=== PATIENT | female | born 1945 | race Two or more races ===

== ENCOUNTER 2019-09-01 19:47 | Inpatient (IN) | payer MEDICARE, OTHER ==
[~2019-09-01] VITALS: Ht 165.1 cm; Wt 58.5 kg
--- NOTE | 2019-09-01 19:50 | NUR ---
PT AAOX2. BIB PRIVATE AMB FROM [address] C/O "BECOMING MORE ALTERED" WAS TOLD PT IS USUALLY AAOX4 BUT IN THE PAST 2 WEEKS SLOWLY BECOMING ALTERED. PT HX OF DEMENTIA. DENIES ANY PAIN. RR EVEN AND UNLABORED. NO NEURO DEFICIT. VSS. AWAITING MD FOR EVAL.
[2019-09-01] MEDS ORDERED: IV NS 0.9% 1,000 ML BAG IV ONE (20:30)
[2019-09-01] MEDS ORDERED: ALBUTEROL FS 2.5 MG/3 ML VIAL.NEB NEB ONE (20:30)
[2019-09-01] MEDS ORDERED: ALBUTEROL FS 2.5 MG/3 ML VIAL.NEB ONE (20:32)
--- NOTE | 2019-09-01 20:47 | NUR ---
PT RECIEVING BREATHING TREATMENT
[2019-09-01 20:53] LABS: BASOPHILS % (AUTO) 0.5 % (0.0-2.0); HEMATOCRIT 32 % (33-45); HEMOGLOBIN 10.6 g/dL (11.5-14.8); LYMPHOCYTES # (AUTO) 1.7 /CMM (0.8-4.8); LYMPHOCYTES % (AUTO) 19.8 % (20.0-44.0); MEAN CORPUSCULAR HGB CONC 33 g/dl (31.0-36.0); MEAN CORPUSCULAR VOLUME 91 fL (82-100); MONOCYTES # (AUTO) 0.9 /CMM (0.1-1.30); MONOCYTES % (AUTO) 10.4 % (2.0-12.0); NEUTROPHILS # (AUTO) 5.7 /CMM (1.8-8.9); NEUTROPHILS % (AUTO) 67.3 % (43.0-81.0); PLATELET COUNT (AUTO) 299 /CMM (150-450); RED BLOOD CELL COUNT(AUTO) 3.48 MIL/uL (4.0-5.2); WHITE BLOOD COUNT (AUTO) 8.4 K/uL (4.3-11.0)
[2019-09-01 20:55] LABS: APPEARANCE,URINE CLEAR (CLEAR); BILIRUBIN,URINE NEGATIVE (NEGATIVE); BLOOD, URINE NEGATIVE Ery/uL (NEGATIVE); COLOR,URINE YELLOW (YELLOW); KETONES,URINE NEGATIVE (NEGATIVE); LEUKOCYTE ESTERASE ,URINE SMALL (NEGATIVE); NITRITE, URINE NEGATIVE (NEGATIVE); PROTEIN,URINE NEGATIVE (NEGATIVE); UGLUCOSE NEGATIVE (NEGATIVE); UROBILINOGEN,URINE 0.2 EU/dL (0.2)
[2019-09-01] MEDS ORDERED: predniSONE 50 MG TABLET PO ONE (21:00)
[2019-09-01] MEDS ORDERED: predniSONE 20 MG TABLET ONE (21:00)
[2019-09-01 21:02] LABS: BACTERIA,URINE 1+ /HPF (None Seen); RBC,URINE 0-2 /HPF (0-2); SQUAMOUS EPITHELIAL CELL,UR Few /HPF (None Seen); WBC,URINE 51-80 /HPF (0-3)
[2019-09-01 21:14] LABS: CREATININE 0.8 mg/dL (0.6-1.3); POTASSIUM 3.8 mmol/L (3.5-5.1)
--- NOTE | 2019-09-01 21:15 | NUR ---
DR YUE TIAN FOR PANEL AND NURSING SUP CALLED FOR MS BED
[2019-09-01 21:21] LABS: ALBUMIN 3.2 g/dL (3.4-5.0); BILIRUBIN,DIRECT 0.1 mg/dL (0.0-0.2); BILIRUBIN,TOTAL 0.2 mg/dL (0.2-1.0); TOTAL PROTEIN, SERUM 6.6 g/dL (6.4-8.2)
[2019-09-01] MEDS ORDERED: CEFEPIME 1 GM in IV D5W 50 ML IV ONE (21:30)
[2019-09-01] MEDS ORDERED: CEFEPIME 1 GM VIAL ONE (21:41)
--- NOTE | 2019-09-01 21:52 | NUR ---
RECIEVED BED 311-1 MS
--- NOTE | 2019-09-01 22:05 | NUR ---
REPORT GIVEN TO AMA MEMBRENO FOR ESTEPHANIA
[2019-09-01 22:30] VITALS: BP 129/82
[2019-09-01] MEDS ORDERED: ONDANSETRON HCL/PF 4 MG/2 ML VIAL IVP PRN (22:30)
[2019-09-01] MEDS ORDERED: Z GUARD REMEDY 2 OZ OINT TP PRN (22:30)
[2019-09-01] MEDS ORDERED: HYDROCODONE/APAP 5/325MG 1 EACH TABLET PO PRN (22:30)
[2019-09-01] MEDS ORDERED: ZOLPIDEM TARTRATE 5 MG TABLET PO PRN (22:30)
--- NOTE | 2019-09-01 22:30 | NUR ---
MS RAISIN WASHER NOTES RECEIVED FROM ER THIS 74 YO FEMALE,A/O X 2-3,WITH EPISODE OF CONFUSION,DX; ACUTE PANCREATITIS,DENIES ABDOMINAL PAIN,NO SOB,SALINE LOCK LEFT AC INTACT,WITH BLOOD STAIN NOTED,FLUSHED WITH SALINE,INTACT AND PATENT.NOTED SLIGHT SWELLING ON I AC SITE,REFUSED TO HAVE NEW SALINE LOCK.AMBULATE WITH ASSIST,WITH KNOWN HX OF LEFT KNEE SURGERY 4 WEEKS AGO,BILATERAL MASTECTOMY FEW YEARS AGO.WITH KNOWN ALLERGY TO TRAMADOL AND TRAZODONE.FALL PRECAUTION OBSERVED,BED ALARM TRIGGERED,BED ON LOWEST POSITION AND LOCKED.NPO STATUS ORDERED.CALL LIGHT IN REACH,NEEDS ANTICIPATED.
[2019-09-01] MEDS: IV 1/2NS 1000 ML 1,000 ML IV PRN (22:51)
--- NOTE | 2019-09-01 22:51 | NUR ---
MS RN NOTES STARTED ON IVF 1/2 NS AT 125ML/HR RATE VIA IV PUMP ON LEFT AC.
--- NOTE | 2019-09-01 23:00 | NUR ---
MS RN NOTES STARTED ON ROCEPHIN 1 GM IVPB ORDERED.
[2019-09-01] MEDS ORDERED: CEFTRIAXONE 1 G VIAL ONE (23:06)
[2019-09-01] MEDS: CEFTRIAXONE 1 G in IV D5W 50 ML IV SCH (23:09)
--- NOTE | 2019-09-02 01:02 | NUR ---
MS RN NOTES NOTED IV SITE LEAKING.NEW SALINE LOCK PLACE ON RIGHT FOREARM#22.SAME IVF INFUSING.
--- NOTE | 2019-09-02 06:20 | NUR ---
MS RN NOTES FAIRLY RESTED,KEPT NPO ORDERED.STILL WITH EPISODE OF CONFUSION BUT APOLOGITIC WITH HER BEHAVIOR.NO FALL,NO INJURY.CALL LIGHT IN REACH,NEEDS ATTENDED.WILL ENDORSE TO DAY NURSE FOR [place].
[2019-09-02 06:45] LABS: BASOPHILS % (AUTO) 0.1 % (0.0-2.0); HEMATOCRIT 33 % (33-45); HEMOGLOBIN 10.8 g/dL (11.5-14.8); LYMPHOCYTES # (AUTO) 0.5 /CMM (0.8-4.8); LYMPHOCYTES % (AUTO) 6.5 % (20.0-44.0); MEAN CORPUSCULAR HGB CONC 33 g/dl (31.0-36.0); MEAN CORPUSCULAR VOLUME 92 fL (82-100); MONOCYTES # (AUTO) 0.1 /CMM (0.1-1.30); MONOCYTES % (AUTO) 1.7 % (2.0-12.0); NEUTROPHILS # (AUTO) 7.2 /CMM (1.8-8.9); NEUTROPHILS % (AUTO) 91.7 % (43.0-81.0); PLATELET COUNT (AUTO) 314 /CMM (150-450); RED BLOOD CELL COUNT(AUTO) 3.55 MIL/uL (4.0-5.2); WHITE BLOOD COUNT (AUTO) 7.9 K/uL (4.3-11.0)
[2019-09-02 07:08] LABS: BILIRUBIN,TOTAL 0.2 mg/dL (0.2-1.0); CALCIUM, SERUM 8.7 mg/dL (8.5-10.1); CREATININE 0.7 mg/dL (0.6-1.3); MAGNESIUM 1.8 mg/dL (1.8-2.4); PHOSPHORUS 3.6 mg/dL (2.5-4.9); POTASSIUM 4.4 mmol/L (3.5-5.1); TOTAL PROTEIN, SERUM 6.6 g/dL (6.4-8.2)
[2019-09-02 08:00] VITALS: BP 108/80
[2019-09-02] MEDS ORDERED: MELA5TAB PO (09:57)
[2019-09-02] MEDS ORDERED: ASPI-605 PO (09:57)
[2019-09-02] MEDS ORDERED: LIDO120C7 TP (09:57)
[2019-09-02] MEDS ORDERED: ASCO500T10 PO (09:57)
[2019-09-02] MEDS ORDERED: CYCL30DR OP (09:57)
[2019-09-02] MEDS ORDERED: FLUT15.845 NS (09:57)
[2019-09-02] MEDS ORDERED: AMLO5TAB4 PO (09:57)
[2019-09-02] MEDS ORDERED: CHOL200013 PO (09:57)
[2019-09-02] MEDS ORDERED: MAGN400O6 PO (09:57)
[2019-09-02] MEDS ORDERED: ALBU8.5H8 IH (09:57)
[2019-09-02] MEDS ORDERED: ACET-73 PO (09:57)
[2019-09-02] MEDS ORDERED: MULT-439 PO (09:57)
[2019-09-02] MEDS ORDERED: GABA-534 PO (09:57)
[2019-09-02] MEDS ORDERED: BISA10SU11 RC (09:57)
[2019-09-02] MEDS ORDERED: DICL100G16 TP (09:57)
[2019-09-02] MEDS ORDERED: ESCI10TA PO (09:57)
[2019-09-02] MEDS ORDERED: NA P133E RC (09:57)
[2019-09-02] MEDS ORDERED: ATOR20TA PO (09:57)
[2019-09-02] MEDS ORDERED: OMEG1CAP PO (09:57)
[2019-09-02] MEDS ORDERED: CALC1POW43 PO (09:57)
[2019-09-02] MEDS ORDERED: DONE10TA11 PO (09:57)
[2019-09-02] MEDS ORDERED: LOSA100T31 PO (09:57)
[2019-09-02] MEDS ORDERED: [UNRECOGNIZED DRUG - OTHER] PO (09:57)
[2019-09-02] MEDS ORDERED: POLY17PO4 PO (09:57)
[2019-09-02] MEDS ORDERED: POTA-10 PO (09:57)
[2019-09-02] MEDS ORDERED: QUET25TA PO (09:57)
[2019-09-02] MEDS ORDERED: MEMA10TA PO (09:57)
[2019-09-02] MEDS ORDERED: FAMO20TA8 PO (09:57)
[2019-09-02] MEDS ORDERED: CYAN10006 PO (09:57)
[2019-09-02] MEDS ORDERED: QUET50TA PO (09:57)
[2019-09-02] MEDS ORDERED: DOCU-141 PO (09:57)
[2019-09-02] MEDS ORDERED: DULO60CA64 PO (09:57)
[2019-09-02] MEDS ORDERED: LEVO112T2 PO (09:57)
[2019-09-02] MEDS ORDERED: BISACODYL SUPP (10 MG) 10 MG/SUPP.RECT SUPP.RECT RC PRN (10:30)
[2019-09-02] MEDS ORDERED: NA PHOS,M-B/NA PHOS,DI-BA 1 EA ENEMA RC PRN (10:30)
[2019-09-02] MEDS ORDERED: MAGNESIUM HYDROXIDE 30 ML UDC PO PRN (10:30)
[2019-09-02] MEDS: IV 1/2NS 1000 ML 1,000 ML IV PRN (10:32)
[2019-09-02] MEDS: ATORVASTATIN 10 MG TABLET PO SCH (10:46)
[2019-09-02] MEDS ORDERED: ACETAMINOPHEN 325 MG TABLET PO PRN (11:30)
[2019-09-02] MEDS: LOSARTAN POTASSIUM 50 MG TABLET PO SCH (11:30)
[2019-09-02] MEDS ORDERED: QUETIAPINE FUMARATE 25 MG TABLET PO SCH (11:30)
[2019-09-02] MEDS: CHOLECALCIFEROL 1,000 UNIT TABLET (VIT D3) PO SCH (11:36)
[2019-09-02] MEDS: FAMOTIDINE (20 MG) 20 MG TABLET PO SCH ×2 (11:37→16:20)
[2019-09-02] MEDS: AMLODIPINE BESYLATE 5 MG TABLET PO SCH (11:37)
[2019-09-02] MEDS: DULOXETINE HCL 30 MG CAPSULE.DR PO SCH (11:54)
[2019-09-02] MEDS ORDERED: POLYVINYL ALCOHOL 15 ML BOTTLE EACHEYE PRN (12:30)
--- NOTE | 2019-09-02 13:00 | NUR ---
_Patient tolerated full liquid diet well. No N/V / abd pain reported. Will advance to soft diet per Dr. Ramirez
[2019-09-02] MEDS ORDERED: ALBUTEROL FS 2.5 MG/0.5 ML VIAL.NEB NEB PRN (13:30)
[2019-09-02] MEDS ORDERED: LIDOCAINE SOLN 4% 50 ML BOTTLE TP PRN (16:00)
[2019-09-02] MEDS ORDERED: CYAN-51 PO (16:04)
[2019-09-02 16:15] VITALS: BP 123/85
[2019-09-02] MEDS: CYANOCOBALAMIN 500 MCG TABLET PO SCH (16:20)
[2019-09-02] MEDS: MEMANTINE HCL 5 MG TABLET PO SCH (16:20)
[2019-09-02] MEDS: DOCUSATE SODIUM 100 MG CAPSULE PO SCH (16:21)
--- NOTE | 2019-09-02 18:20 | NUR ---
PAtient resting in bed, calm spenser cooperative at this time. Breathing unlabored and even on room air , with no distress noted. All needs attended . Patient tolerated soft diet well . Denies abdominal pain. All due meds administrated. Patient ambulatory and able to use bathroom. IV line intact and patent. Patient refused IV fluids. SAfety precautions in place , call light within reach. Will endorse to next shift .
--- NOTE | 2019-09-02 19:20 | NUR ---
MS/RN NOTES RECEIVED PT. SITTING UP IN BED. PT. IS AWAKE, ALERT AND ORIENTED X2-3. BREATHING EVEN AND UNLABORED ON ROOM AIR. NO SOB, RESPIRATORY DISTRESS OR COMPLAINTS OF PAIN NOTED AT THIS TIME PT. WITH RIGHT FOREARM 22 GAUGE SALINE LOCK PRESENT, PATENT AND INTACT. PT. IS REFUSING IV FLUIDS AT THIS TIME. BED LOCKED AND IN LOWEST POSITION, SIDE RAILS UP X2, CALL LIGHT WITHIN REACH, WILL CONTINUE TO MONITOR.
[2019-09-02 20:31] VITALS: BP 140/83
[2019-09-02] MEDS ORDERED: Medication Not On Formulary EA (Quetiapine Fumarate (Seroquel) 50 MG) PO SCH ×2 (22:00)
[2019-09-02] MEDS ORDERED: Medication Not On Formulary EA (Melatonin 5 MG) PO SCH (22:00)
[2019-09-02] MEDS: DONEPEZIL 5 MG TABLET PO SCH (22:25)
[2019-09-02] MEDS: GABAPENTIN 300 MG CAPSULE PO SCH (22:25)
[2019-09-02] MEDS: QUETIAPINE FUMARATE 25 MG TABLET PO SCH (22:25)
[2019-09-02] MEDS: CEFTRIAXONE 1 G in IV D5W 50 ML IV SCH (22:25)
--- NOTE | 2019-09-03 06:17 | NUR ---
MS/RN NOTES PT. IS LYING IN BED RESTING. BREATHING EVEN AND UNLABORED ON ROOM AIR. NO SOB, RESPIRATORY DISTRESS OR COMPLAINTS OF PAIN NOTED AT THIS TIME AND THROUGHOUT SHIFT. PT. WITH RIGHT FOREARM 22 GAUGE PERIPHERAL IV PRESENT, PATENT AND INTACT ADMINISTERING TO PT. 1/2 NS @ 125 ML/HR. ALL PT. NEEDS MET. BED LOCKED AND IN LOWEST POSITION, SIDE RAILS UP X2, CALL LIGHT WITHIN REACH, WILL ENDORSE TO DAYSHIFT NURSE FOR CONTINUITY OF CARE.
[2019-09-03 06:49] LABS: BASOPHILS # (AUTO) 0.1 /CMM (0.0-0.2); BASOPHILS % (AUTO) 0.8 % (0.0-2.0); EOSINOPHILS % (AUTO) 1.8 % (0.0-6.0); HEMATOCRIT 32 % (33-45); HEMOGLOBIN 10.7 g/dL (11.5-14.8); LYMPHOCYTES # (AUTO) 2.4 /CMM (0.8-4.8); LYMPHOCYTES % (AUTO) 36.4 % (20.0-44.0); MEAN CORPUSCULAR HGB CONC 34 g/dl (31.0-36.0); MEAN CORPUSCULAR VOLUME 91 fL (82-100); MONOCYTES # (AUTO) 0.7 /CMM (0.1-1.30); MONOCYTES % (AUTO) 10.9 % (2.0-12.0); NEUTROPHILS # (AUTO) 3.3 /CMM (1.8-8.9); NEUTROPHILS % (AUTO) 50.1 % (43.0-81.0); PLATELET COUNT (AUTO) 309 /CMM (150-450); RED BLOOD CELL COUNT(AUTO) 3.51 MIL/uL (4.0-5.2); WHITE BLOOD COUNT (AUTO) 6.7 K/uL (4.3-11.0)
[2019-09-03 07:22] LABS: CALCIUM, SERUM 8.7 mg/dL (8.5-10.1); CREATININE 0.7 mg/dL (0.6-1.3); POTASSIUM 4.1 mmol/L (3.5-5.1)
--- NOTE | 2019-09-03 07:50 | NUR ---
MS/RN Opening notes Patient received resting in bed, A/O x2-3, showing no signs of acute distress at this time. No SOB noted, saturating >95% on RA. IV line is clean and intact. Patient has no new concerns at this time. Bed is in lowest position, side rails x3 in upright position, call light is within reach. Safety, fall and aspiration precautions enforced. Will continue with plan of care.
[2019-09-03 08:00] VITALS: BP 112/88
[2019-09-03] MEDS ORDERED: Medication Not On Formulary EA (Omega-3 Fatty Acids/Fish Oil (Fish Oil 1,000 Mg Capsule) PO SCH (09:00)
[2019-09-03] MEDS: POLYETHYLENE GLYCOL 3350 17 GM POWD.PACK PO SCH (09:00)
[2019-09-03] MEDS ORDERED: ESCITALOPRAM OXALATE (10 MG) 10 MG TABLET PO SCH (09:00)
[2019-09-03] MEDS: DOCUSATE SODIUM 100 MG CAPSULE PO SCH ×2 (09:00→16:20)
[2019-09-03] MEDS ORDERED: CYANOCOBALAMIN 1,000 MCG/ML VIAL IJ SCH (09:00)
[2019-09-03] MEDS ORDERED: DICLOFENAC TOPICAL 100 GM GEL..GM. TP SCH (09:00)
[2019-09-03] MEDS: FAMOTIDINE (20 MG) 20 MG TABLET PO SCH ×2 (09:11→16:20)
[2019-09-03] MEDS: MEMANTINE HCL 5 MG TABLET PO SCH ×2 (09:11→16:20)
[2019-09-03] MEDS: CYANOCOBALAMIN 500 MCG TABLET PO SCH (09:11)
[2019-09-03] MEDS: DULOXETINE HCL 30 MG CAPSULE.DR PO SCH (09:11)
[2019-09-03] MEDS: AMLODIPINE BESYLATE 5 MG TABLET PO SCH (09:11)
[2019-09-03] MEDS: ASPIRIN EC 81 MG TABLET.DR PO SCH (09:12)
[2019-09-03] MEDS: QUETIAPINE FUMARATE 25 MG TABLET PO SCH ×2 (09:12→21:21)
[2019-09-03] MEDS: ASCORBIC ACID 500 MG TABLET PO SCH (09:12)
[2019-09-03] MEDS: LOSARTAN POTASSIUM 50 MG TABLET PO SCH (09:12)
[2019-09-03] MEDS: CALCIUM CARB 250MG /VITAMIN D 1 UDTAB PO SCH (09:12)
[2019-09-03] MEDS: CHOLECALCIFEROL 1,000 UNIT TABLET (VIT D3) PO SCH (09:13)
[2019-09-03] MEDS: LEVOTHYROXINE SODIUM 112 MCG TABLET PO SCH (09:13)
[2019-09-03] MEDS: ATORVASTATIN 10 MG TABLET PO SCH (09:13)
[2019-09-03] MEDS: MULTIVIT W/MINERALS 1 TAB TABLET PO SCH (09:13)
[2019-09-03] MEDS: FLUTICASONE PROPIONATE 16 GM BOTTLE NS SCH (09:40)
[2019-09-03 16:00] VITALS: BP 105/70
[2019-09-03 18:15] LABS: APPEARANCE,URINE CLEAR (CLEAR); BILIRUBIN,URINE NEGATIVE (NEGATIVE); BLOOD, URINE NEGATIVE Ery/uL (NEGATIVE); COLOR,URINE YELLOW (YELLOW); KETONES,URINE NEGATIVE (NEGATIVE); LEUKOCYTE ESTERASE ,URINE NEGATIVE (NEGATIVE); NITRITE, URINE NEGATIVE (NEGATIVE); PROTEIN,URINE NEGATIVE (NEGATIVE); UGLUCOSE NEGATIVE (NEGATIVE); UROBILINOGEN,URINE 0.2 EU/dL (0.2)
[2019-09-03] MEDS ORDERED: TRAMADOL HCL 50 MG TABLET ONE (18:49)
--- NOTE | 2019-09-03 18:54 | NUR ---
MS/RN Closing notes Patient received resting in bed, A/O x2-3, has moments of paranoia, reoriented to reality. Showing no signs of acute distress at this time. No SOB noted, saturating >95% on RA. IV line is clean and intact. Patient is motivated to self-care, BRP, ambulatory. Bed is in lowest position, side rails x3 in upright position, call light is within reach. Safety, fall and aspiration precautions enforced. endorse to windows software engineer.
--- NOTE | 2019-09-03 19:30 | NUR ---
RN NOTES RECEIVED PT. WALKING IN THE HALLWAY, A/OX2, NOT IN DISTRESS, NO PAIN NOTED, WILL CONTINUE TO MONITOR
[2019-09-03 20:00] VITALS: BP 99/70
[2019-09-03] MEDS: DONEPEZIL 5 MG TABLET PO SCH (21:21)
[2019-09-03] MEDS: GABAPENTIN 300 MG CAPSULE PO SCH (21:22)
[2019-09-03] MEDS: CEFTRIAXONE 1 G in IV D5W 50 ML IV SCH (22:56)
[2019-09-03] MEDS: IV 1/2NS 1000 ML 1,000 ML IV PRN (23:51)
--- NOTE | 2019-09-04 06:38 | NUR ---
RN NOTES AWAKE, NOT IN DISTRESS, NO PAIN NOTED, MORNING CARE RENDERED, CALL LIGHT WITHIN REACH, SIDERAILSUPX2, PT. NEEDS ATTENDED
[2019-09-04 07:20] LABS: BASOPHILS # (AUTO) 0.1 /CMM (0.0-0.2); BASOPHILS % (AUTO) 0.8 % (0.0-2.0); EOSINOPHILS % (AUTO) 4.2 % (0.0-6.0); HEMATOCRIT 33 % (33-45); LYMPHOCYTES # (AUTO) 2.4 /CMM (0.8-4.8); MEAN CORPUSCULAR HGB CONC 34 g/dl (31.0-36.0); MEAN CORPUSCULAR VOLUME 91 fL (82-100); MONOCYTES # (AUTO) 0.8 /CMM (0.1-1.30); MONOCYTES % (AUTO) 11.3 % (2.0-12.0); NEUTROPHILS # (AUTO) 3.4 /CMM (1.8-8.9); NEUTROPHILS % (AUTO) 48.7 % (43.0-81.0); PLATELET COUNT (AUTO) 350 /CMM (150-450); RED BLOOD CELL COUNT(AUTO) 3.58 MIL/uL (4.0-5.2)
[2019-09-04 07:22] LABS: CALCIUM, SERUM 8.9 mg/dL (8.5-10.1); CREATININE 0.8 mg/dL (0.6-1.3); POTASSIUM 4.1 mmol/L (3.5-5.1)
--- NOTE | 2019-09-04 07:39 | NUR ---
MS/RN Opening notes Patient received resting in bed, A/O x2-3, showing no signs of acute distress at this time. No SOB noted, saturating >95% on RA. IV line is clean and intact. Patient has no new concerns at this time. Ambulating with walker at this time. Diet advanced to regular as per MD. Bed is in lowest position, side rails x3 in upright position, call light is within reach. Safety precautions enforced. Will continue with plan of care.
[2019-09-04 08:00] VITALS: BP 114/65
[2019-09-04] MEDS: FAMOTIDINE (20 MG) 20 MG TABLET PO SCH ×2 (08:21→16:13)
[2019-09-04] MEDS: CYANOCOBALAMIN 500 MCG TABLET PO SCH (08:21)
[2019-09-04] MEDS: DULOXETINE HCL 30 MG CAPSULE.DR PO SCH (08:21)
[2019-09-04] MEDS: ASCORBIC ACID 500 MG TABLET PO SCH (08:22)
[2019-09-04] MEDS: ATORVASTATIN 10 MG TABLET PO SCH (08:22)
[2019-09-04] MEDS: CALCIUM CARB 250MG /VITAMIN D 1 UDTAB PO SCH (08:22)
[2019-09-04] MEDS: QUETIAPINE FUMARATE 25 MG TABLET PO SCH ×2 (08:22→21:42)
[2019-09-04] MEDS: MEMANTINE HCL 5 MG TABLET PO SCH ×2 (08:22→16:13)
[2019-09-04] MEDS: LOSARTAN POTASSIUM 50 MG TABLET PO SCH (08:22)
[2019-09-04] MEDS: CHOLECALCIFEROL 1,000 UNIT TABLET (VIT D3) PO SCH (08:23)
[2019-09-04] MEDS: LEVOTHYROXINE SODIUM 112 MCG TABLET PO SCH (08:23)
[2019-09-04] MEDS: AMLODIPINE BESYLATE 5 MG TABLET PO SCH (08:23)
[2019-09-04] MEDS: MULTIVIT W/MINERALS 1 TAB TABLET PO SCH (08:23)
[2019-09-04] MEDS: ASPIRIN EC 81 MG TABLET.DR PO SCH (08:24)
[2019-09-04] MEDS: POLYETHYLENE GLYCOL 3350 17 GM POWD.PACK PO SCH (09:00)
[2019-09-04] MEDS: DOCUSATE SODIUM 100 MG CAPSULE PO SCH ×2 (09:00→16:14)
[2019-09-04] MEDS: FLUTICASONE PROPIONATE 16 GM BOTTLE NS SCH (09:29)
[2019-09-04] MEDS: MENTHOL/CETYLPYRD (CEPACOL) 1 LOZ LOZENGE PO PRN ×2 (09:29→14:50)
[2019-09-04 16:00] VITALS: BP_SYST 125; BP_SYST 144; BP_DIAS 80; BP_DIAS 85
--- NOTE | 2019-09-04 18:28 | NUR ---
MS/RN Closing notes Patient received resting in bed, A/O x2-3, showing no signs of acute distress at this time. No SOB noted, saturating >95% on RA. IV line is clean and intact. Patient has no new concerns at this time. Patient slept throughout the day, has BRP, and is ambulating at this time. Bed is in lowest position, side rails x3 in upright position, call light is within reach. Safety precautions enforced. Will endorse to overnight cashier.
--- NOTE | 2019-09-04 19:35 | NUR ---
MS RN OPENING NOTS Patient received walking through the halls, stable gait A/O x3. On RA breathing is even and unlabored, no SOB noted. No signs of acute distress, no complaints of pain or discomfort at the moment. IV located on R FA #22 patent and intact. Safety precautions are in place with bed in lowest position, call light within reach, and break on. Will continue to monitor.
[2019-09-04 20:00] VITALS: BP 128/72
[2019-09-04] MEDS: DONEPEZIL 5 MG TABLET PO SCH (21:42)
[2019-09-04] MEDS: GABAPENTIN 300 MG CAPSULE PO SCH (21:42)
--- NOTE | 2019-09-05 06:36 | NUR ---
MS RN CLOSING NOTES Patient currently resting in bed, A/O x2-3, showing no signs of acute distress at this time. No SOB noted, saturating >95% on RA breathing even and unlabored . IV line located on R FA is clean and intact. Patient has no new concerns at this time. Patient slept throughout the day, has BRP, and is able to ambulate. Bed is in lowest position, side rails x3 in upright position, call light is within reach. Safety precautions enforced. All needs were met throughout the nigh, patient was kept clean and dry. Will endorse to oncoming shift about rayne.
[2019-09-05 06:40] LABS: BASOPHILS # (AUTO) 0.1 /CMM (0.0-0.2); BASOPHILS % (AUTO) 0.7 % (0.0-2.0); EOSINOPHILS % (AUTO) 4.4 % (0.0-6.0); HEMATOCRIT 34 % (33-45); HEMOGLOBIN 11.1 g/dL (11.5-14.8); LYMPHOCYTES # (AUTO) 2.1 /CMM (0.8-4.8); LYMPHOCYTES % (AUTO) 27.3 % (20.0-44.0); MEAN CORPUSCULAR HGB CONC 33 g/dl (31.0-36.0); MEAN CORPUSCULAR VOLUME 92 fL (82-100); MONOCYTES # (AUTO) 0.8 /CMM (0.1-1.30); MONOCYTES % (AUTO) 11.1 % (2.0-12.0); NEUTROPHILS # (AUTO) 4.3 /CMM (1.8-8.9); NEUTROPHILS % (AUTO) 56.5 % (43.0-81.0); PLATELET COUNT (AUTO) 349 /CMM (150-450); RED BLOOD CELL COUNT(AUTO) 3.74 MIL/uL (4.0-5.2); WHITE BLOOD COUNT (AUTO) 7.6 K/uL (4.3-11.0)
[2019-09-05 07:07] LABS: CALCIUM, SERUM 8.9 mg/dL (8.5-10.1); CREATININE 0.8 mg/dL (0.6-1.3); POTASSIUM 3.8 mmol/L (3.5-5.1)
[2019-09-05 08:00] VITALS: BP 137/85
--- NOTE | 2019-09-05 08:00 | NUR ---
MS RN OPENING NOTES Received Patient asleep and resting in bed. A/O x 3 with episodes of confusion. VS stable with no acute distress. Breathing even and unlabored on room air with no respiratory distress. Denies pain. 22g PIV on RFA clean, intact, patent and flushing well with 1/2NS infusing at 125ml/hr. Safety precautions in place. Bed locked and set to lowest position with side rails x 2 up. All needs rendered at this time. Call light within reach. Will continue to monitor.
[2019-09-05] MEDS: FLUTICASONE PROPIONATE 16 GM BOTTLE NS SCH (08:54)
[2019-09-05] MEDS: LEVOTHYROXINE SODIUM 112 MCG TABLET PO SCH (08:54)
[2019-09-05] MEDS: DOCUSATE SODIUM 100 MG CAPSULE PO SCH (08:54)
[2019-09-05] MEDS: ASPIRIN EC 81 MG TABLET.DR PO SCH (08:54)
[2019-09-05] MEDS: POLYETHYLENE GLYCOL 3350 17 GM POWD.PACK PO SCH (08:55)
[2019-09-05] MEDS: LOSARTAN POTASSIUM 50 MG TABLET PO SCH (08:55)
[2019-09-05] MEDS: ATORVASTATIN 10 MG TABLET PO SCH (08:55)
[2019-09-05] MEDS: DULOXETINE HCL 30 MG CAPSULE.DR PO SCH (08:55)
[2019-09-05 08:56] VITALS: BP 137/85
[2019-09-05] MEDS: CYANOCOBALAMIN 500 MCG TABLET PO SCH (08:56)
[2019-09-05] MEDS: CALCIUM CARB 250MG /VITAMIN D 1 UDTAB PO SCH (08:56)
[2019-09-05] MEDS: QUETIAPINE FUMARATE 25 MG TABLET PO SCH (08:56)
[2019-09-05] MEDS: AMLODIPINE BESYLATE 5 MG TABLET PO SCH (08:56)
[2019-09-05] MEDS: MEMANTINE HCL 5 MG TABLET PO SCH (08:56)
[2019-09-05] MEDS: FAMOTIDINE (20 MG) 20 MG TABLET PO SCH (08:56)
[2019-09-05] MEDS: MULTIVIT W/MINERALS 1 TAB TABLET PO SCH (08:56)
[2019-09-05] MEDS: ASCORBIC ACID 500 MG TABLET PO SCH (08:57)
[2019-09-05] MEDS: CHOLECALCIFEROL 1,000 UNIT TABLET (VIT D3) PO SCH (08:57)
--- NOTE | 2019-09-05 14:35 | NUR ---
MS BRICKLAYER SEWER NOTES Patient discharged for [facility] at this time. Patient in stable condition. VS stable with no acute distress. Breathing even and unlabored on room air with no respiratory distress. Denies pain. Skin intact. Removed intact PIV on RFA. Patient tolerated well. Medication reconciliation and discharge orders reviewed and explained to Patient. Patient verbalized understanding. All belongings with Patient. Patient will follow up with PCP at SNF. Patient picked up by ambulance transport. Report given to Latia MEMBRENO.
--- NOTE | 2019-09-05 15:10 | NUR ---
MS RN NOTES Per [facility], transfer for Patient was unauthorized nor confirmed. Patient returned to hospital at 1500. Received confirmation for Patient transfer at 1505. Patient still in [facility] and in stable condition and was transferred to [facility] at this time.
== END 2019-09-05 15:10 | DRG 438 ==
LOC: ER 19:53 → MED 22:02
PROVIDERS: ADMIT Internal Medicine; ATTEND Family Medicine
DX: K85.90 Acute pancreatitis without necrosis or infection, unspecified (principal); G93.41 Metabolic encephalopathy; N39.0 Urinary tract infection, site not specified; F41.9 Anxiety disorder, unspecified; E78.5 Hyperlipidemia, unspecified; F03.90 Unspecified dementia, unspecified severity, without behavioral disturbance, psychotic disturbance, mood disturbance, and anxiety; J44.9 Chronic obstructive pulmonary disease, unspecified; E86.0 Dehydration; I10 Essential (primary) hypertension; I25.10 Atherosclerotic heart disease of native coronary artery without angina pectoris; Z85.3 Personal history of malignant neoplasm of breast; F32.9 Major depressive disorder, single episode, unspecified; K21.9 Gastro-esophageal reflux disease without esophagitis; Z88.8 Allergy status to other drugs, medicaments and biological substances
CPT/HCPCS: 36415; 71045-TC; 80048-TC; 80053-TC; 80061-TC; 80076-TC; 81000-TC; 83690-TC; 83735-TC; 84100-TC; 84484-TC; 85025-TC; 87081-TC; 87086-TC; G0378; J0692; J0696; J3490; J7030; J7060

== ENCOUNTER 2020-04-20 15:38 | Inpatient (IN) | payer MEDICARE, OTHER ==
[~2020-04-20] VITALS: Ht 162.6 cm; Wt 64.0 kg
[~2020-04-20 15:38] MED LIST: ACET-73 PO; ALBU8.5H8 IH; AMLO5TAB4 PO; ASCO500T10 PO; ASPI-605 PO; ATOR20TA PO; BISA10SU11 RC; CALC1POW43 PO; CHOL200013 PO; CYAN-51 PO; CYCL30DR OP; DICL100G16 TP; DOCU-141 PO; DONE10TA11 PO; DULO60CA64 PO; ESCI10TA PO; FAMO20TA8 PO; FLUT15.845 NS; GABA-534 PO; LEVO112T2 PO; LIDO120C7 TP; LOSA100T31 PO; MAGN400O6 PO; MELA5TAB PO; MEMA10TA PO; MULT-439 PO; NA P133E RC; OMEG1CAP PO; POLY17PO4 PO; POTA-10 PO; QUET25TA PO; QUET50TA PO; [UNRECOGNIZED DRUG - OTHER] PO
--- NOTE | 2020-04-20 16:40 | NUR ---
GAUDENCIO FROM SNF TO ER BED 4. AWALE, ALERT ORIENTED x 2-3 BUT WITH EPSIODES OF CONFUSIONPT BROUGHT IN FOR L KNEE PAIN AND CONFUSION. PAIN IS RATED 6/10 ACHING DULL CHRONIC AND NON RADIATING. PT DENIES FALLING NOR HAVING TRUMA ON THAT KNEE. MD WAS AT THE BEDSIE. ORDERS RECEIVED NOTED AND CARRIED OUT. IV LINE OBTAINED ON L HAND 20G. WRIST CLOSER DRAW
--- NOTE | 2020-04-20 16:47 | NUR ---
CALLED DYAN, NURSING HOUSE SUP FOR MS BED.
--- NOTE | 2020-04-20 16:59 | NUR ---
GOING TO 117.
[2020-04-20] MEDS ORDERED: IV NS 0.9% 1,000 ML BAG IV ONE (17:00)
[2020-04-20] MEDS ORDERED: CALC1TAB30 PO (17:03)
[2020-04-20 17:05] LABS: BASOPHILS % (AUTO) 0.5 % (0.0-2.0); EOSINOPHILS % (AUTO) 1.2 % (0.0-6.0); HEMATOCRIT 38 % (33-45); HEMOGLOBIN 12.5 g/dL (11.5-14.8); LYMPHOCYTES # (AUTO) 1.4 /CMM (0.8-4.8); LYMPHOCYTES % (AUTO) 22.2 % (20.0-44.0); MEAN CORPUSCULAR HGB CONC 33 g/dl (31.0-36.0); MEAN CORPUSCULAR VOLUME 94 fL (82-100); MONOCYTES # (AUTO) 0.5 /CMM (0.1-1.30); MONOCYTES % (AUTO) 7.8 % (2.0-12.0); NEUTROPHILS # (AUTO) 4.2 /CMM (1.8-8.9); NEUTROPHILS % (AUTO) 68.3 % (43.0-81.0); PLATELET COUNT (AUTO) 222 /CMM (150-450); RED BLOOD CELL COUNT(AUTO) 4.02 MIL/uL (4.0-5.2); WHITE BLOOD COUNT (AUTO) 6.2 K/uL (4.3-11.0)
[2020-04-20] MEDS ORDERED: IV 1/2NS 1000 ML 1,000 ML IV PRN (17:12)
[2020-04-20 17:16] LABS: CALCIUM, SERUM 9.2 mg/dL (8.5-10.1); CARBON DIOXIDE 28 mmol/L (21-32); CHLORIDE 100 mmol/L (98-107); CREATININE 0.9 mg/dL (0.6-1.3); GLUCOSE 145 mg/dL (74-106); POTASSIUM 3.8 mmol/L (3.5-5.1); SODIUM SERUM 134 mmol/L (136-145); UREA NITROGEN, BLOOD 12 mg/dL (7-18)
[2020-04-20] MEDS ORDERED: OMEP20CA15 PO (17:17)
[2020-04-20] MEDS ORDERED: POLY15DR40 EACHEYE (17:17)
[2020-04-20] MEDS ORDERED: MELA1TAB27 PO (17:17)
[2020-04-20] MEDS ORDERED: CRAN425C6 PO (17:17)
[2020-04-20] MEDS ORDERED: ACET-868 PO (17:17)
[2020-04-20] MEDS ORDERED: LEVO100T9 PO (17:17)
[2020-04-20 17:22] LABS: ALANINE AMINOTRANSFERASE 20 U/L (12-78); ALBUMIN 3.5 g/dL (3.4-5.0); ALKALINE PHOSPHATASE 92 U/L (46-116); ASPARTATE AMINOTRANSFERASE 20 U/L (15-37); BILIRUBIN,DIRECT 0.1 mg/dL (0.0-0.2); BILIRUBIN,TOTAL 0.3 mg/dL (0.2-1.0); TOTAL PROTEIN, SERUM 7.3 g/dL (6.4-8.2)
[2020-04-20] MEDS ORDERED: MAGNESIUM HYDROXIDE 30 ML UDC PO PRN ×3 (17:30→19:00)
[2020-04-20] MEDS ORDERED: ACETAMINOPHEN 325 MG TABLET PO PRN ×3 (17:30→19:00)
[2020-04-20] MEDS ORDERED: MAG HYDROX/AL HYDROX/SIMETH 30 ML UDC PO PRN ×2 (17:30→18:00)
[2020-04-20] MEDS ORDERED: ONDANSETRON HCL/PF 4 MG/2 ML VIAL IVP PRN ×2 (17:30→18:00)
[2020-04-20] MEDS ORDERED: Z GUARD REMEDY 2 OZ OINT TP PRN ×2 (17:30→18:00)
[2020-04-20] MEDS ORDERED: HYDROCODONE/APAP 5/325MG TABLET PO PRN ×2 (17:30→18:00)
--- NOTE | 2020-04-20 17:31 | NUR ---
REPORT GIVEN TO HASEEB LACKEY FOR ESTEPHANIA
--- NOTE | 2020-04-20 17:53 | NUR ---
PT BEING TRANSPOTED TO UNIT ON [facility] WITH EMT AT BESIDE. PT IS IN STABLE CONDITION FOR TRANSPORT.
--- NOTE | 2020-04-20 18:10 | NUR ---
RN VASCULAR NOTE: Patient arrived at unit via gurney accompanied by staff. Belongings form signed, body assessment done. Vital signs taken. Patient in stable condition. Awaiting admission orders to be endorsed to oncoming shift.
[2020-04-20 18:30] VITALS: BP 144/85
[2020-04-20] MEDS ORDERED: BISACODYL SUPP (10 MG) 10 MG/SUPP.RECT SUPP.RECT RC PRN (19:00)
[2020-04-20] MEDS ORDERED: NA PHOS,M-B/NA PHOS,DI-BA 1 EA ENEMA RC PRN (19:00)
--- NOTE | 2020-04-20 19:00 | NUR ---
RN NOTE: Admission to be finished by oncoming shift. Patient remains stable. Endorsement given.
--- NOTE | 2020-04-20 19:20 | NUR ---
RN OPENING NOTES: RECEIVED PT A/OX 4 IN BED RESTING COMFORTABLY. PATIENT IN NO S/SX OF ACUTE DISTRESS AT THIS TIME. NO SOB NOTED. PATIENT'S BREATHING IS EVEN AND UNLABORED. PATIENT IS ON RA ; TOLERATING WELL; SATURATING AT 97% AT TIME OF RECEIVED. NOTED IV SITE ON R HAND #20; PATENT IN INTACT,NO S/S OF INFECTION OR INFILTRATION. PATIENT AMBULATORY WITH ASSISTANCE. BEDPAN AT BESIDE. WILL CARRY OUT ADMISSION ORDERS SCHEDULED.SAFETY MEASURES HAVE BEEN PROVIDED AND IMPLEMENTED. PATIENT BED ALARM IS ON. HEAD OF BED ELEVATED. BED IS LOCKED, IN LOWEST POSITION AND SIDE RAILS UP. CALL LIGHT WITHIN REACH OF THE PATIENT. ISOLATION PRECAUTIONS IN PLACE. WILL CONTINUE TO MONITOR AND REASSESS FOR ANY CHANGES.
[2020-04-20] MEDS ORDERED: ALBUTEROL FS 2.5 MG/0.5 ML VIAL.NEB NEB PRN (19:30)
[2020-04-20 20:00] VITALS: BP 143/93
[2020-04-20] MEDS: MULTIVIT W/MINERALS 1 TAB TABLET PO SCH (20:08)
[2020-04-20] MEDS: QUETIAPINE FUMARATE 25 MG TABLET PO SCH (20:08)
[2020-04-20] MEDS: IV 1/2NS 1000 ML 1,000 ML IV PRN (20:27)
[2020-04-20] MEDS: POLYVINYL ALCOHOL 15 ML BOTTLE OP SCH (21:52)
[2020-04-20] MEDS ORDERED: Medication Not On Formulary EA (Melatonin/Pyridoxine HCl (B6) (Melatonin 3 mg Tablet) 1 PO SCH (22:00)
[2020-04-20 23:33] LABS: APPEARANCE,URINE CLEAR (CLEAR); BILIRUBIN,URINE NEGATIVE (NEGATIVE); BLOOD, URINE NEGATIVE Ery/uL (NEGATIVE); COLOR,URINE YELLOW (YELLOW); KETONES,URINE NEGATIVE (NEGATIVE); LEUKOCYTE ESTERASE ,URINE TRACE (NEGATIVE); NITRITE, URINE NEGATIVE (NEGATIVE); PROTEIN,URINE NEGATIVE (NEGATIVE); UGLUCOSE NEGATIVE (NEGATIVE); UROBILINOGEN,URINE 0.2 EU/dL (0.2)
[2020-04-20 23:41] LABS: BACTERIA,URINE None seen /HPF (None Seen); RBC,URINE 0-2 /HPF (0-2); SQUAMOUS EPITHELIAL CELL,UR Rare /HPF (None Seen)
[2020-04-20] MEDS: GABAPENTIN 300 MG CAPSULE PO SCH (23:43)
[2020-04-20] MEDS: DONEPEZIL 5 MG TABLET PO SCH (23:43)
[2020-04-21 04:00] VITALS: BP 130/89
--- NOTE | 2020-04-21 06:42 | NUR ---
RN CLOSING NOTES PATIENT REMAINS IN ROOM IN NO SIGNS OF RESPIRATORY DISTRESS. PATIENT SATURATING 98%. VITAL SIGNS WNL. SAFETY PRECAUTIONS IN PLACE AND COMFORT MEASURES RENDERED. BED IN LOWEST POSITION, CALL LIGHT WITHIN REACH, BREAKS ON, SIDE RAILS UP. ALL NEEDS ATTENDED, MEDICATIONS GIVEN SCHEDULED AND ORDERED ; SHIFT ASSESSMENT/BEDBATH/SKIN CARE DONE. PATIENT KEPT CLEAN AND DRY. WILL ENDORSE TO INCOMING SHIFT FOR ESTEPH[place]IA.
--- NOTE | 2020-04-21 07:30 | NUR ---
RN OPENING NOTES: Patient in bed, a/ox4, Grenadian speaking, on room air, tolerating well, no s/sx of sob, distress noted. saturating 97% on Room air, IV line on R hand #20, intact and flushed, ambulatory with assistance, safety measures implemented,call light in reach, bed alarm is on will cont to monitor
[2020-04-21] MEDS: LEVOTHYROXINE SODIUM 100 MCG TABLET PO SCH (07:34)
[2020-04-21] MEDS: PANTOPRAZOLE 40 MG TABLET.DR PO SCH (07:34)
[2020-04-21 08:00] VITALS: BP 133/73
[2020-04-21] MEDS: CALCIUM CARB 250MG /VITAMIN D 1 UDTAB PO SCH (08:48)
[2020-04-21] MEDS: MEMANTINE HCL 5 MG TABLET PO SCH ×2 (08:48→17:39)
[2020-04-21] MEDS: CYANOCOBALAMIN 500 MCG TABLET PO SCH (08:48)
[2020-04-21] MEDS: QUETIAPINE FUMARATE 25 MG TABLET PO SCH ×2 (08:48→20:26)
[2020-04-21] MEDS: LOSARTAN POTASSIUM 50 MG TABLET PO SCH (08:49)
[2020-04-21] MEDS: ASCORBIC ACID 500 MG TABLET PO SCH (08:49)
[2020-04-21] MEDS: ASPIRIN EC 81 MG TABLET.DR PO SCH (08:49)
[2020-04-21] MEDS: POLYETHYLENE GLYCOL 3350 17 GM POWD.PACK PO SCH (08:50)
[2020-04-21] MEDS: DULOXETINE HCL 30 MG CAPSULE.DR PO SCH (08:50)
[2020-04-21] MEDS: AMLODIPINE BESYLATE 5 MG TABLET PO SCH (08:50)
[2020-04-21] MEDS ORDERED: Medication Not On Formulary EA (Cranberry Extract (Cranberry) 850 MG) PO SCH (09:00)
[2020-04-21] MEDS: POLYVINYL ALCOHOL 15 ML BOTTLE OP SCH ×3 (09:27→17:39)
[2020-04-21] MEDS: FLUTICASONE PROPIONATE 16 GM BOTTLE NS SCH (09:49)
[2020-04-21] MEDS: IV 1/2NS 1000 ML 1,000 ML IV PRN ×2 (10:00→15:49)
--- NOTE | 2020-04-21 12:07 | NUR ---
patient covid negative dr. ott notified ok to move patient to noncovid unit,nursing sup notified awaits bed.
--- NOTE | 2020-04-21 13:04 | NUR ---
Called med surg 2, gave Teri report, patient is going to transfer to room 205-1
[2020-04-21 13:15] VITALS: BP 116/72
--- NOTE | 2020-04-21 13:15 | NUR ---
MS RN NOTES RECEIVED PATIENT FROM HASEEB HARRIS KIM. PATIENT ALERT AND ORIENTED X2-3 WITH EPISODES OF FORGETFULNESS. AMBULATORY WITH UNSTEADY GAIT BUT ABLE TO STABILIZE SELF ONCE UP. DENIES ANY C/O PAIN NOR DISCOMFORT AT THIS TIME. BRP, VOIDED FREELY WITHOUT C/O PAIN. ORIENTED PATIENT TO ROOM, UNIT, ROOMMATE AND CALL LIGHT. RIGHT HAND SL # 20 INTACT AND PATENT. BED IN LOWEST POSITION ,LOCKED. BED ALARM ON. FREQUENT VISUAL CHECK DONE.
[2020-04-21] MEDS: DOCUSATE SODIUM 100 MG CAPSULE PO SCH (17:39)
[2020-04-21] MEDS: MULTIVIT W/MINERALS 1 TAB TABLET PO SCH (17:39)
[2020-04-21 18:00] VITALS: BP 110/84
[2020-04-21] MEDS ORDERED: Medication Not On Formulary EA (Omega-3 Fatty Acids/Fish Oil (Fish Oil 1,000 Mg Capsule) PO SCH (18:00)
--- NOTE | 2020-04-21 18:39 | NUR ---
MS RN NOTES PATIENT RESTING COMFORTABLY IN BED WATCHING TV. HOB ELEVATED. NO S/S OF RESPIRATORY DISTRESS. DENIES ANY C/O PAIN NOR DISCOMFORT AT THIS TIME. RIGHT HAND SL # 20 INTACT AND PATENT INFUSING .45 % NS AT 75ML/HR JHONNY WELL. BED IN LOWEST POSITION ,LOCKED. BED ALARM ON. FREQUENT VISUAL CHECK DONE. CALL LIGHT WITHIN REACH. ABLE OT VERBALIZE NEEDS. IN NO APPARENT DISTRESS.
[2020-04-21 20:00] VITALS: BP 108/71
--- NOTE | 2020-04-21 20:00 | NUR ---
RN NOTES RECEIVED PT. AWAKE ON BED, A/OX3 WITH CONFUSION, DENIES ANY PAIN, NO SOB, CALL LIGHT WITHIN REACH, SIERAILSUPX2, CONTINUE TO MONITOR
[2020-04-21] MEDS: GABAPENTIN 300 MG CAPSULE PO SCH (21:37)
[2020-04-21] MEDS: ATORVASTATIN 10 MG TABLET PO SCH (21:37)
[2020-04-21] MEDS: DONEPEZIL 5 MG TABLET PO SCH (21:37)
--- NOTE | 2020-04-22 06:33 | NUR ---
RN NOTES AWAKE, MORNING CARE RENDERED, CALL LIGHT WITHIN REACH, JONYAILSUPX2, PT. NEEDS ATTENDED
--- NOTE | 2020-04-22 07:25 | NUR ---
MS RN NOTES RECEIVED PATIENT ASLEEP IN BED, AROUSABLE TO VERBAL AND TACTILE STIMULI. ALERT AND ORIENTED X2-3 WITH EPISODES OF FORGETFULNESS. DENIES ANY C/O PAIN NOR DISCOMFORT AT THIS TIME. BRP, VOIDED FREELY WITHOUT C/O PAIN. RIGHT HAND SL # 20 INTACT AND PATENT. BED IN LOWEST POSITION ,LOCKED. BED ALARM ON. FREQUENT VISUAL CHECK DONE. CALL LIGHT WITHIN REACH.
[2020-04-22 07:56] LABS: BASOPHILS # (AUTO) 0.1 /CMM (0.0-0.2); BASOPHILS % (AUTO) 0.9 % (0.0-2.0); EOSINOPHILS % (AUTO) 2.9 % (0.0-6.0); HEMATOCRIT 37 % (33-45); HEMOGLOBIN 12.3 g/dL (11.5-14.8); LYMPHOCYTES # (AUTO) 1.5 /CMM (0.8-4.8); LYMPHOCYTES % (AUTO) 24.9 % (20.0-44.0); MEAN CORPUSCULAR HGB CONC 33 g/dl (31.0-36.0); MEAN CORPUSCULAR VOLUME 92 fL (82-100); MONOCYTES # (AUTO) 0.5 /CMM (0.1-1.30); MONOCYTES % (AUTO) 8.2 % (2.0-12.0); NEUTROPHILS # (AUTO) 3.8 /CMM (1.8-8.9); NEUTROPHILS % (AUTO) 63.1 % (43.0-81.0); PLATELET COUNT (AUTO) 231 /CMM (150-450); WHITE BLOOD COUNT (AUTO) 6.1 K/uL (4.3-11.0)
[2020-04-22 08:00] VITALS: BP 118/69
[2020-04-22 08:05] LABS: CALCIUM, SERUM 8.9 mg/dL (8.5-10.1); CREATININE 0.7 mg/dL (0.6-1.3); POTASSIUM 4.1 mmol/L (3.5-5.1)
[2020-04-22] MEDS: PANTOPRAZOLE 40 MG TABLET.DR PO SCH (08:27)
[2020-04-22] MEDS: LEVOTHYROXINE SODIUM 100 MCG TABLET PO SCH (08:28)
[2020-04-22] MEDS: FLUTICASONE PROPIONATE 16 GM BOTTLE NS SCH (09:03)
[2020-04-22] MEDS: DULOXETINE HCL 30 MG CAPSULE.DR PO SCH (09:04)
[2020-04-22] MEDS: ASCORBIC ACID 500 MG TABLET PO SCH (09:05)
[2020-04-22] MEDS: ASPIRIN EC 81 MG TABLET.DR PO SCH (09:05)
[2020-04-22] MEDS: LOSARTAN POTASSIUM 50 MG TABLET PO SCH (09:05)
[2020-04-22] MEDS: QUETIAPINE FUMARATE 25 MG TABLET PO SCH ×2 (09:05→21:03)
[2020-04-22] MEDS: AMLODIPINE BESYLATE 5 MG TABLET PO SCH (09:06)
[2020-04-22] MEDS: CYANOCOBALAMIN 500 MCG TABLET PO SCH (09:06)
[2020-04-22] MEDS: POLYETHYLENE GLYCOL 3350 17 GM POWD.PACK PO SCH (09:07)
[2020-04-22] MEDS: CALCIUM CARB 250MG /VITAMIN D 1 UDTAB PO SCH (09:07)
[2020-04-22] MEDS: MEMANTINE HCL 5 MG TABLET PO SCH ×2 (09:07→17:45)
[2020-04-22] MEDS: POLYVINYL ALCOHOL 15 ML BOTTLE OP SCH ×3 (09:08→17:43)
[2020-04-22] MEDS: DOCUSATE SODIUM 100 MG CAPSULE PO SCH (17:45)
[2020-04-22] MEDS: MULTIVIT W/MINERALS 1 TAB TABLET PO SCH (17:45)
--- NOTE | 2020-04-22 18:50 | NUR ---
MS RN NOTES PATIENT RESTING COMFORTABLY IN BED WATCHING TV. HOB ELEVATED. NO S/S OF RESPIRATORY DISTRESS. DENIES ANY C/O PAIN NOR DISCOMFORT AT THIS TIME. RIGHT HAND SL # 20 INTACT AND PATENT. BED IN LOWEST POSITION ,LOCKED. BED ALARM ON. FREQUENT VISUAL CHECK DONE. CALL LIGHT WITHIN REACH. ABLE OT VERBALIZE NEEDS. IN NO APPARENT DISTRESS.
--- NOTE | 2020-04-22 19:50 | NUR ---
MS RN OPENING NOTES PATIENT RECEIVED RESTING IN BED COMFORTABLY; A/OX2-3, SOMETIMES FORGETFUL AND HAS BOUTS OF CONFUSION; PATIENT BREATHING EVEN AND UNLABORED; NO SOB NOTED; TOLERATING ROOM AIR WELL; R HAND # 20 INTACT AND PATENT, FLUSHING WELL; NO S/S OF REDNESS OR INFILTRATION NOTED; PER AM SHIFT, POSSIBLE D/C IN AM BACK TO [facility] ([place] PER DR. HENDRICKSON; SAFETY PRECAUTIONS IMPLEMENTED; BED LOCKED IN LOW POSITION; BED ALARM ON; SIDE RAILSX2; CALL LIGHT WITHIN EASY REACH; WILL CONT TO MONITOR
[2020-04-22 20:00] VITALS: BP 113/66
[2020-04-22 20:31] VITALS: BP 113/66
[2020-04-22] MEDS: DONEPEZIL 5 MG TABLET PO SCH (21:03)
[2020-04-22] MEDS: ATORVASTATIN 10 MG TABLET PO SCH (21:03)
[2020-04-22] MEDS: GABAPENTIN 300 MG CAPSULE PO SCH (21:03)
--- NOTE | 2020-04-23 06:41 | NUR ---
MS RN CLOSING NOTES PATIENT RESTING IN BED COMFORTABLY; A/OX2-3, HAS BOUTS OF CONFUSION; BREATHING EVEN AND UNLABORED; TOLERATING ROOM AIR WELL; NO SOB NOTED; PATIENT ABLE TO MAKE NEEDS KNOWN; R HAND #20 S/L INTACT AND PATENT; FLUSHING WELL; ALL NEEDS RENDERED; PER PREVIOUS SHIFT, DR HENDRICKSON OK TO D/C PATIENT BACK TO SNF ([facility]), WILL INFORM DAY SHIFT; SAFETY PRECAUTIONS IMPLEMENTED; BED ALARM ON, SIDE RAILSX2; CALL LIGHT WITHIN REACH; WILL ENDORSE [place] TO ONCOMING SHIFT
--- NOTE | 2020-04-23 07:19 | NUR ---
MS RN NOTES MRSA SWAB COLLECTED VIA RIGHT NARE; WILL INFORM LAB; HASEEB MCKEON AWARE;
[2020-04-23] MEDS: LEVOTHYROXINE SODIUM 100 MCG TABLET PO SCH (07:48)
[2020-04-23] MEDS: PANTOPRAZOLE 40 MG TABLET.DR PO SCH (07:48)
[2020-04-23 08:00] VITALS: BP 117/72
[2020-04-23] MEDS: POLYETHYLENE GLYCOL 3350 17 GM POWD.PACK PO SCH (08:15)
[2020-04-23] MEDS: FLUTICASONE PROPIONATE 16 GM BOTTLE NS SCH (08:15)
[2020-04-23] MEDS: CALCIUM CARB 250MG /VITAMIN D 1 UDTAB PO SCH (08:16)
[2020-04-23] MEDS: ASCORBIC ACID 500 MG TABLET PO SCH (08:16)
[2020-04-23] MEDS: CYANOCOBALAMIN 500 MCG TABLET PO SCH (08:16)
[2020-04-23] MEDS: DULOXETINE HCL 30 MG CAPSULE.DR PO SCH (08:16)
[2020-04-23] MEDS: ASPIRIN EC 81 MG TABLET.DR PO SCH (08:16)
[2020-04-23] MEDS: QUETIAPINE FUMARATE 25 MG TABLET PO SCH (08:16)
[2020-04-23] MEDS: MEMANTINE HCL 5 MG TABLET PO SCH (08:16)
[2020-04-23 08:17] VITALS: BP 117/72
[2020-04-23] MEDS: LOSARTAN POTASSIUM 50 MG TABLET PO SCH (08:17)
[2020-04-23] MEDS: AMLODIPINE BESYLATE 5 MG TABLET PO SCH (08:17)
[2020-04-23] MEDS: POLYVINYL ALCOHOL 15 ML BOTTLE OP SCH ×2 (09:00→13:00)
--- NOTE | 2020-04-23 12:53 | NUR ---
MS RN NOTES [facility]
--- NOTE | 2020-04-23 12:59 | NUR ---
MS RN NOTES CALLED PATIENTS SON EBONIE INFORMED THAT PATIENT IS BEING DISCHARGED TO [facility] AT 1330.
--- NOTE | 2020-04-23 14:30 | NUR ---
MS RN NOTES PATIENT DISCHARGED TO [facility]. DISCHARGE PROTOCOL FOLLOWED. PATIENTS SKIN IS INTACT. DISCHARGE TEACHING PROVIDED TO PATIENT AND SN AT SNF FACILITY. ALL BELONGINGS ACCOUNTED FOR, BELONGING LIST SIGNED. PERIPHERAL IV REMOVED WITH MINIMAL BLEEDING. ID BAND REMOVED. REPORT GIVEN TO EMT AT BEDSIDE. PATIENT DISCHARGE WITH EMT.
== END 2020-04-23 14:28 | DRG 690 ==
LOC: ER 15:45 → MEDSG1 18:02 → MEDSG2 04-21 13:25
PROVIDERS: ADMIT Internal Medicine; ATTEND Internal Medicine
DX: N39.0 Urinary tract infection, site not specified (principal); E87.1 Hypo-osmolality and hyponatremia; M19.90 Unspecified osteoarthritis, unspecified site; J44.9 Chronic obstructive pulmonary disease, unspecified; Z79.82 Long term (current) use of aspirin; Z86.73 Personal history of transient ischemic attack (TIA), and cerebral infarction without residual deficits; E86.0 Dehydration; E03.9 Hypothyroidism, unspecified; E78.5 Hyperlipidemia, unspecified; E86.1 Hypovolemia; I25.10 Atherosclerotic heart disease of native coronary artery without angina pectoris; I10 Essential (primary) hypertension; K21.9 Gastro-esophageal reflux disease without esophagitis; F29 Unspecified psychosis not due to a substance or known physiological condition; F32.9 Major depressive disorder, single episode, unspecified; F41.9 Anxiety disorder, unspecified; K29.70 Gastritis, unspecified, without bleeding; Z96.652 Presence of left artificial knee joint; Z79.899 Other long term (current) drug therapy; Z79.51 Long term (current) use of inhaled steroids; G62.9 Polyneuropathy, unspecified; F03.90 Unspecified dementia, unspecified severity, without behavioral disturbance, psychotic disturbance, mood disturbance, and anxiety; Z79.890 Hormone replacement therapy
CPT/HCPCS: 36415; 71045-TC; 73564-TC; 80048-TC; 80076-TC; 81000-TC; 84484-TC; 85025-TC; 87081-TC; 87086-TC; G0378; J3490; J7030; U0003-CS

== ENCOUNTER 2020-08-16 13:39 | Inpatient (IN) | payer MEDICARE, OTHER ==
[~2020-08-16] VITALS: Ht 165.1 cm; Wt 59.9 kg
[~2020-08-16 13:39] MED LIST changes: -ACET-73 PO; +ACET-868 PO; -CALC1POW43 PO; +CALC1TAB30 PO; -CHOL200013 PO; +CRAN425C6 PO; -CYCL30DR OP; -DICL100G16 TP; -ESCI10TA PO; -FAMO20TA8 PO; +LEVO100T9 PO; -LEVO112T2 PO; -LIDO120C7 TP; +MELA1TAB27 PO; -MELA5TAB PO; +OMEP20CA15 PO; +POLY15DR40 EACHEYE; -POTA-10 PO; -QUET50TA PO; -[UNRECOGNIZED DRUG - OTHER] PO
--- NOTE | 2020-08-16 14:10 | NUR ---
Sent from snf for left femur fracture. vs checked. iv access started. blood draw done. sent to lab. seen by
[2020-08-16 16:26] LABS: BASOPHILS % (AUTO) 0.9 % (0.0-2.0); EOSINOPHILS % (AUTO) 1.8 % (0.0-6.0); HEMATOCRIT 37 % (33-45); HEMOGLOBIN 12.3 g/dL (11.5-14.8); LYMPHOCYTES # (AUTO) 1.5 /CMM (0.8-4.8); LYMPHOCYTES % (AUTO) 26.6 % (20.0-44.0); MEAN CORPUSCULAR HGB CONC 33 g/dl (31.0-36.0); MEAN CORPUSCULAR VOLUME 94 fL (82-100); MONOCYTES # (AUTO) 0.4 /CMM (0.1-1.30); MONOCYTES % (AUTO) 6.9 % (2.0-12.0); NEUTROPHILS # (AUTO) 3.7 /CMM (1.8-8.9); NEUTROPHILS % (AUTO) 63.8 % (43.0-81.0); PLATELET COUNT (AUTO) 338 /CMM (150-450); WHITE BLOOD COUNT (AUTO) 5.7 K/uL (4.3-11.0)
[2020-08-16] MEDS ORDERED: MORPHINE SULFATE INJ 2 MG/ML DISP.SYRIN IV ONE (16:30)
[2020-08-16] MEDS ORDERED: ONDANSETRON HCL/PF 4 MG/2 ML VIAL IV ONE (16:30)
[2020-08-16 16:40] LABS: CALCIUM, SERUM 9.6 mg/dL (8.5-10.1); CARBON DIOXIDE 29 mmol/L (21-32); CHLORIDE 103 mmol/L (98-107); CREATININE 0.8 mg/dL (0.6-1.3); GLUCOSE 128 mg/dL (74-106); POTASSIUM 3.9 mmol/L (3.5-5.1); SODIUM SERUM 141 mmol/L (136-145); UREA NITROGEN, BLOOD 15 mg/dL (7-18)
--- NOTE | 2020-08-16 16:42 | NUR ---
covid swab collected sent to lab
[2020-08-16] MEDS ORDERED: NA PHOS,M-B/NA PHOS,DI-BA 1 EA ENEMA RC PRN (17:00)
[2020-08-16] MEDS ORDERED: BISACODYL SUPP (10 MG) 10 MG/SUPP.RECT SUPP.RECT RC PRN (17:00)
[2020-08-16] MEDS ORDERED: ALBUTEROL SULFATE INH 18 GM HFA.AER.AD IH PRN (17:00)
[2020-08-16] MEDS ORDERED: MORPHINE SULFATE INJ 2 MG/ML DISP.SYRIN ONE (17:06)
[2020-08-16] MEDS ORDERED: ONDANSETRON HCL/PF 4 MG/2 ML VIAL ONE (17:06)
[2020-08-16] MEDS ORDERED: MAGNESIUM HYDROXIDE 30 ML UDC PO PRN (17:30)
[2020-08-16] MEDS ORDERED: Z GUARD REMEDY 2 OZ OINT TP PRN (17:30)
[2020-08-16] MEDS ORDERED: MAG HYDROX/AL HYDROX/SIMETH 30 ML UDC PO PRN (17:30)
[2020-08-16] MEDS ORDERED: HYDROCODONE/APAP 5/325MG TABLET PO PRN (17:30)
[2020-08-16] MEDS ORDERED: ONDANSETRON HCL/PF 4 MG/2 ML VIAL IVP PRN (17:30)
[2020-08-16] MEDS ORDERED: Medication Not On Formulary EA (Omega-3 Fatty Acids/Fish Oil (Fish Oil 1,000 Mg Capsule) PO SCH (18:00)
[2020-08-16] MEDS: DOCUSATE SODIUM 100 MG CAPSULE PO SCH (19:38)
[2020-08-16] MEDS: PANTOPRAZOLE 40 MG TABLET.DR PO SCH (21:00)
[2020-08-16] MEDS: QUETIAPINE FUMARATE 25 MG TABLET PO SCH (21:00)
[2020-08-16] MEDS: ATORVASTATIN 10 MG TABLET PO SCH (22:00)
[2020-08-16] MEDS: DONEPEZIL 5 MG TABLET PO SCH (22:00)
[2020-08-16] MEDS: GABAPENTIN 300 MG CAPSULE PO SCH (22:00)
--- NOTE | 2020-08-17 01:56 | NUR ---
REC'D NEG COVID RESULTS. AWARE
--- NOTE | 2020-08-17 04:03 | NUR ---
PT REMAINS ASLEEP, PROVIDED WITH PILLOW AND BLANKET.
[2020-08-17 05:58] LABS: BASOPHILS % (AUTO) 0.6 % (0.0-2.0); HEMATOCRIT 39 % (33-45); HEMOGLOBIN 12.6 g/dL (11.5-14.8); LYMPHOCYTES # (AUTO) 1.7 /CMM (0.8-4.8); LYMPHOCYTES % (AUTO) 25.2 % (20.0-44.0); MEAN CORPUSCULAR HGB CONC 33 g/dl (31.0-36.0); MEAN CORPUSCULAR VOLUME 95 fL (82-100); MONOCYTES # (AUTO) 0.5 /CMM (0.1-1.30); MONOCYTES % (AUTO) 7.2 % (2.0-12.0); NEUTROPHILS # (AUTO) 4.4 /CMM (1.8-8.9); PLATELET COUNT (AUTO) 310 /CMM (150-450); RED BLOOD CELL COUNT(AUTO) 4.07 MIL/uL (4.0-5.2); WHITE BLOOD COUNT (AUTO) 6.8 K/uL (4.3-11.0)
--- NOTE | 2020-08-17 06:05 | NUR ---
PATIENT CHANGED INTO CLEAN GOWN AND CLEAN SHEETS.
[2020-08-17 06:14] LABS: CALCIUM, SERUM 9.7 mg/dL (8.5-10.1); CREATININE 0.9 mg/dL (0.6-1.3); MAGNESIUM 2.5 mg/dL (1.8-2.4); PHOSPHORUS 4.1 mg/dL (2.5-4.9); POTASSIUM 4.3 mmol/L (3.5-5.1)
--- NOTE | 2020-08-17 07:36 | NUR ---
PATIENT IN BED ASLEEP. HOOKED TO MONITOR. VSS. WILL CONTINUE TO MONITOR ACCORDINGLY. KEPT WARM AND COMFORTABLE.
[2020-08-17] MEDS: LEVOTHYROXINE SODIUM 100 MCG TABLET PO SCH (08:00)
--- NOTE | 2020-08-17 08:35 | NUR ---
CALLED DR. FAN'S EXCHANGE.
[2020-08-17] MEDS: LOSARTAN POTASSIUM 50 MG TABLET PO SCH (09:00)
[2020-08-17] MEDS: AMLODIPINE BESYLATE 5 MG TABLET PO SCH (09:00)
[2020-08-17] MEDS: POLYETHYLENE GLYCOL 3350 17 GM POWD.PACK PO SCH (09:35)
[2020-08-17] MEDS: DULOXETINE HCL 30 MG CAPSULE.DR PO SCH (09:35)
[2020-08-17] MEDS: MEMANTINE HCL 5 MG TABLET PO SCH ×2 (09:35→17:21)
[2020-08-17] MEDS: PANTOPRAZOLE 40 MG TABLET.DR PO SCH ×2 (09:36→21:53)
[2020-08-17] MEDS: CALCIUM CARB 250MG /VITAMIN D 1 UDTAB PO SCH (09:36)
[2020-08-17] MEDS: QUETIAPINE FUMARATE 25 MG TABLET PO SCH ×2 (09:36→21:53)
[2020-08-17] MEDS: ASCORBIC ACID 500 MG TABLET PO SCH (09:36)
--- NOTE | 2020-08-17 10:36 | NUR ---
Mildred katz in EDM - 08/17/20 at 1858 by SARAHI PATIENT IN BED ASLEEP, OPENS EYES WITH VERBAL STIMULI. HOOKED TO MONITOR. VSS. WILL CONTINUE TO MONITOR ACCORDINGLY. KEPT WARM AND COMFORTABLE.
[2020-08-17] MEDS ORDERED: ANESTHESIA TRAY IN PYXIS 1 EA TRAY MC ONE (13:25)
--- NOTE | 2020-08-17 13:37 | NUR ---
LUNCH TRAY PROVIDED. PATIENT TOLERATING PO WELL.
--- NOTE | 2020-08-17 14:13 | NUR ---
PER ORTHO MD, SURGERY WILL BE DONE TOMORROW AT 10AM. ORDERED TO PLACE PATIENT ON NPO AT MIDNIGHT.
--- NOTE | 2020-08-17 14:27 | NUR ---
Mildred katz in [place] - 08/17/20 at 1428 by SARAHI REPORT GIVEN TO JORGE L DÍAZ OF [facility]
--- NOTE | 2020-08-17 15:27 | NUR ---
PATIENT IN BED WATCHING TELEVISION. HOOKED TO MONITOR. VSS. WILL CONTINUE TO MONITOR ACCORDINGLY. KEPT WARM AND COMFORTABLE.
--- NOTE | 2020-08-17 17:12 | NUR ---
PATIENT PROVIDED DINNER TRAY. TOLERATING PO WELL.
[2020-08-17] MEDS: MULTIVIT W/MINERALS 1 TAB TABLET PO SCH (18:04)
[2020-08-17] MEDS: DOCUSATE SODIUM 100 MG CAPSULE PO SCH (18:04)
--- NOTE | 2020-08-17 19:30 | NUR ---
ENDORSEMENT GIVEN TO TRUNG MEMBRENO FOR ESTEPHANIA
--- NOTE | 2020-08-17 20:02 | NUR ---
BED ASSIGNMENT 304-2
--- NOTE | 2020-08-17 20:14 | NUR ---
REPORT GIVEN TO LUC MEMBRENO FOR ESTEPHANIA.
--- NOTE | 2020-08-17 20:33 | NUR ---
PATIENT TAKEN TO ASSIGNED ROOM FOR ESTEPHANIA.
[2020-08-17 21:00] VITALS: BP 124/50
[2020-08-17] MEDS: ATORVASTATIN 10 MG TABLET PO SCH (21:53)
[2020-08-17] MEDS: GABAPENTIN 300 MG CAPSULE PO SCH (21:53)
[2020-08-17] MEDS: DONEPEZIL 5 MG TABLET PO SCH (21:53)
--- NOTE | 2020-08-17 22:56 | NUR ---
MS RN NOTE: Received pt from ER via casey with ER staff. Pt. with left femur fracture. VSS, no sob, no acute distress. Bed in low and locked position with 2 side rails up. All needs attended. Will continue to monitor.
--- NOTE | 2020-08-18 06:11 | NUR ---
MS RN NOTE: Received pt from ER via casey with ER staff. Pt. with left femur fracture. VSS, no sob, no acute distress. Bed in low and locked position with 2 side rails up. All needs attended. FC output 800. Will endorse to day shift nurse
[2020-08-18] MEDS: LEVOTHYROXINE SODIUM 100 MCG TABLET PO SCH (07:30)
[2020-08-18 08:00] VITALS: BP 113/82
[2020-08-18] MEDS: MEMANTINE HCL 5 MG TABLET PO SCH ×2 (09:00→16:16)
[2020-08-18] MEDS: LOSARTAN POTASSIUM 50 MG TABLET PO SCH (09:00)
[2020-08-18] MEDS: DULOXETINE HCL 30 MG CAPSULE.DR PO SCH (09:00)
[2020-08-18] MEDS: PANTOPRAZOLE 40 MG TABLET.DR PO SCH ×2 (09:00→21:06)
[2020-08-18] MEDS: ASCORBIC ACID 500 MG TABLET PO SCH (09:00)
[2020-08-18] MEDS: POLYETHYLENE GLYCOL 3350 17 GM POWD.PACK PO SCH (09:00)
[2020-08-18] MEDS: AMLODIPINE BESYLATE 5 MG TABLET PO SCH (09:00)
[2020-08-18] MEDS: QUETIAPINE FUMARATE 25 MG TABLET PO SCH ×2 (09:00→21:06)
[2020-08-18] MEDS: CALCIUM CARB 250MG /VITAMIN D 1 UDTAB PO SCH (09:00)
--- NOTE | 2020-08-18 10:05 | NUR ---
RN MS NOTES PT PICKED UP BY O.R. STAFF VIA BED IN STABLE CONDITION.
[2020-08-18] MEDS ORDERED: VANCOMYCIN 1 GM VIAL ONE (10:26)
[2020-08-18] MEDS ORDERED: BUPIVACAINE 0.5 % PF 150 MG/30 ML VIAL ONE (10:26)
[2020-08-18] MEDS ORDERED: BACITRACIN 50000 UNITS/VIAL ONE (10:26)
[2020-08-18] MEDS ORDERED: FENTANYL PF 100MCG/2ML AMPUL ONE ×2 (12:08→12:35)
[2020-08-18 13:30] VITALS: BP 133/88
--- NOTE | 2020-08-18 13:45 | NUR ---
RN MS NOTES RECEIVED PT FROM O.R. STAFF VIA BED, PT IS AWAKE, ALERT AND ORIENTED, NO COMPLAINT AT THIS TIME, BREATHING PATTERN NORMAL, POST OP ORDERS RECEIVED FROM .
[2020-08-18] MEDS ORDERED: MORPHINE SULFATE INJ 2 MG/ML DISP.SYRIN IV PRN (15:00)
[2020-08-18] MEDS: ACETAMINOPHEN 325 MG TABLET PO PRN (15:03)
[2020-08-18 16:00] VITALS: BP 127/82
[2020-08-18] MEDS: IV D5/0.45 NACL W/20 MEQ KCL 1L IV PRN ×2 (16:49)
[2020-08-18] MEDS: MULTIVIT W/MINERALS 1 TAB TABLET PO SCH (17:27)
[2020-08-18] MEDS: DOCUSATE SODIUM 100 MG CAPSULE PO SCH (17:27)
[2020-08-18] MEDS: ANCEF 1 GM/50 ML D5W IV SCH ×2 (19:25)
--- NOTE | 2020-08-18 19:30 | NUR ---
MS RN NOTES RECEIVED ON BED A/O X3,BREATHING REGULAR,NOT IN ANY FORM OF DISTRESS,S/P LEFT FEMUR ORIF TODAY,DRESSING INTACT AND DRY,KNEE IMMOBILIZER IN USED,ELEVATED ON PILLOWS.IVF WITH 20 KCL AT 75ML/HR RATE INFUSING WELL ON LEFT AC SALINE LOCK VIA IV PUMP.DVT PUMP IN USED ON LEFT LEG.CALL LIGHT IN REACH,NEEDS ANTICIPATED.
[2020-08-18 20:00] VITALS: BP 133/87
[2020-08-18] MEDS: DONEPEZIL 5 MG TABLET PO SCH (21:07)
[2020-08-18] MEDS: ATORVASTATIN 10 MG TABLET PO SCH (21:08)
[2020-08-18] MEDS: GABAPENTIN 300 MG CAPSULE PO SCH (21:08)
[2020-08-19] MEDS: ANCEF 1 GM/50 ML D5W IV SCH ×2 (02:49)
--- NOTE | 2020-08-19 03:00 | NUR ---
MS RN NOTES ANCEF 1GM IV COMPLETED.IVF WITH KCL REFUSED AT 1999,LEFT LEG IMMOBILIZER IN PLACE.SLEPT WELL,NO DISTRESS.WILL ENDORSE TO DAY NURSE FOR ESTEPH[place]IA.
--- NOTE | 2020-08-19 07:30 | NUR ---
RN MS NOTES PT IN BED, AWAKE, ALERT AND ORIENTED, WITH COMPLAINT OF SLIGHT PAIN TO LEFT LEG, NOT IN DISTRESS, IV FLUIDS INFUSING WELL, CALL LIGHT WITHIN REACH, F/C IN PLACE, DRAINING WELL WITH CLEAR, YELLOW URINE, KEPT WARM AND COMFORTABLE IN BED.
[2020-08-19] MEDS: ACETAMINOPHEN 325 MG TABLET PO PRN (07:53)
[2020-08-19 08:00] VITALS: BP 127/82
[2020-08-19] MEDS: CALCIUM CARB 250MG /VITAMIN D 1 UDTAB PO SCH (08:06)
[2020-08-19] MEDS: POLYETHYLENE GLYCOL 3350 17 GM POWD.PACK PO SCH (08:06)
[2020-08-19] MEDS: PANTOPRAZOLE 40 MG TABLET.DR PO SCH ×2 (08:07→21:45)
[2020-08-19] MEDS: LEVOTHYROXINE SODIUM 100 MCG TABLET PO SCH (08:07)
[2020-08-19] MEDS: QUETIAPINE FUMARATE 25 MG TABLET PO SCH ×2 (08:07→21:45)
[2020-08-19] MEDS: MEMANTINE HCL 5 MG TABLET PO SCH ×2 (08:07→17:20)
[2020-08-19] MEDS: DULOXETINE HCL 30 MG CAPSULE.DR PO SCH (08:07)
[2020-08-19] MEDS: ASCORBIC ACID 500 MG TABLET PO SCH (08:11)
[2020-08-19] MEDS: AMLODIPINE BESYLATE 5 MG TABLET PO SCH (08:22)
[2020-08-19] MEDS: LOSARTAN POTASSIUM 50 MG TABLET PO SCH (08:22)
[2020-08-19 16:00] VITALS: BP 109/61
[2020-08-19] MEDS: MULTIVIT W/MINERALS 1 TAB TABLET PO SCH (17:20)
[2020-08-19] MEDS: DOCUSATE SODIUM 100 MG CAPSULE PO SCH (17:20)
--- NOTE | 2020-08-19 18:16 | NUR ---
MS RN NOTES PT AWAKE AND ALERT WITH PERIODS OF CONFUSION. PT IS CALM AND COOPERATIVE. NO SIGNS OF DISTRESS. PT IS COMPLIANT WITH MEDICATIONS. PT VITAL SIGNS WNL. PT AMBULATED WITH PHYSICAL THERAPIST. BED ON LOWEST POSITION, BED LIGHT WITHIN REACH AND BED ALARM IS ON.
--- NOTE | 2020-08-19 19:30 | NUR ---
MS/RN OPENING NOTES RECEIVED PATIENT RESTING IN BED. REPORT GIVEN BY DAY SHIFT NURSE FOR ESTEPHANIA. PATIENT BREATHING IS EVEN AND UNLABORED NO SIGNS OF SOB OR RESPIRATORY DISTRESS NOTED. PATIENT IS IN NO DISTRESS. SAFETY MEASURES ARE IN PLACE. WILL CONTINUE TO MONITOR THROUGH OUT SHIFT.
[2020-08-19] MEDS: ATORVASTATIN 10 MG TABLET PO SCH (21:45)
[2020-08-19] MEDS: GABAPENTIN 300 MG CAPSULE PO SCH (21:45)
[2020-08-19] MEDS: DONEPEZIL 5 MG TABLET PO SCH (21:45)
[2020-08-20] MEDS: IV D5/0.45 NACL W/20 MEQ KCL 1L IV PRN ×2 (05:51)
--- NOTE | 2020-08-20 06:50 | NUR ---
MS/RN CLOSING NOTES PATIENT IN BED SLEEPING EASY TO AROUSE. PATIENT IS ALERT AND ORIENTED X 3. NO SIGNS OF SOB OR RESPIRATORY DISTRESS NOTED. PATIENT BREATHING IS EVEN AND UNLABORED. PATIENT IN NO SIGNS OF DISTRESS. PATIENT HAS IV ACCESS ON R AC #22G RUNNING D 1/2 NS WITH 20 MEQ AT 75 ML/HR. PATIENT HAD IMMOBILIZER IN PLACE LEFT LEG. ALL PATIENT NEEDS HAVE BEEN MET DURING SHIFT. SAFETY MEASURES ARE IN PLACE, BED IS LOCKED AND PLACED IN THE LOW POSITION, SIDE RAILS UP X 2, CALL LIGHT WITHIN REACH. WILL ENDORSE CARE TO DAY SHIFT NURSE.
--- NOTE | 2020-08-20 07:33 | NUR ---
MS RN OPENING NOTES PATIENT IN BED RESTING, AWAKE AND VERBALLY RESPONSIVE. ALERT AND ORIENTED X2-3, TURKISH-SPEAKING BUT ABLE TO MAKE NEEDS KNOWN, UNDERSTANDS SOME GERMAN. BREATHING IS EVEN AND UNLABORED, TOLERATING ROOM AIR. IV LINE ON RAC #22 INTACT AND PATENT. IMMOBILIZER ON LEFT LEG IN PLACE. SAFETY MEASURES ARE IN PLACE: BED IS LOCKED AND ON LOWEST POSITION, SIDE RAILS UP X 2, CALL LIGHT WITHIN REACH. WILL CONTINUE TO MONITOR.
[2020-08-20 08:00] VITALS: BP 105/60
[2020-08-20] MEDS: ASCORBIC ACID 500 MG TABLET PO SCH (10:01)
[2020-08-20] MEDS: DULOXETINE HCL 30 MG CAPSULE.DR PO SCH (10:02)
[2020-08-20] MEDS: MEMANTINE HCL 5 MG TABLET PO SCH ×2 (10:02→16:25)
[2020-08-20] MEDS: LEVOTHYROXINE SODIUM 100 MCG TABLET PO SCH (10:02)
[2020-08-20] MEDS: LOSARTAN POTASSIUM 50 MG TABLET PO SCH (10:02)
[2020-08-20] MEDS: AMLODIPINE BESYLATE 5 MG TABLET PO SCH (10:03)
[2020-08-20] MEDS: CALCIUM CARB 250MG /VITAMIN D 1 UDTAB PO SCH (10:03)
[2020-08-20] MEDS: QUETIAPINE FUMARATE 25 MG TABLET PO SCH (10:04)
[2020-08-20] MEDS: PANTOPRAZOLE 40 MG TABLET.DR PO SCH (10:04)
[2020-08-20] MEDS: POLYETHYLENE GLYCOL 3350 17 GM POWD.PACK PO SCH (10:05)
--- NOTE | 2020-08-20 15:06 | NUR ---
RN NOTES PATIENT REPORT AND INSTRUCTIONS GIVEN TO HASEEB SHANNON OF [facility]. PATIENT RETURNING TO FACILITY FOR PT/OT AND CONTINUITY OF CARE.
[2020-08-20 16:00] VITALS: BP 110/68
--- NOTE | 2020-08-20 17:41 | NUR ---
RN NOTES SPOKE W/ TRACE FROM [facility] [phone]; PER TRACE, AMBULANCE IS EN ROUTE TO HOSPITAL IN 15-20MINS.
--- NOTE | 2020-08-20 18:23 | NUR ---
FILLING OPERATOR NOTES PATIENT WAS SEEN BY OSKAR OWUSU, W/ [facility] DISCHARGE INSTRUCTIONS AND EDUCATION PROVIDED TO PATIENT AND REPORT GIVEN TO HASEEB SHANNON. PATIENT IS AWAKE AND VERBALLY RESPONSIVE, A/O X3, ABLE TO MAKE NEEDS KNOWN. DISCHARGE INSTRUCTIONS AND BELONGINGS LIST FORMS SIGNED BY PATIENT. IV LINE AND FOY CATHETER REMOVED; PROCEDURE TOLERATED WELL BY PATIENT, NO COMPLAINT OF PAIN, ABLE TO VOID X1. PATIENT WAS PICKED UP BY 2 NON DESTRUCTIVE TESTING SPECIALIST VIA DRAGAN, BEDSIDE REPORT GIVEN. ENDORSED MOBILITY/WB STATUS OF PATIENT AND LLE IMMOBILIZER. CHARGE NURSE AND MD AWARE OF DISCHARGE.
== END 2020-08-20 18:25 | DRG 482 ==
LOC: ER 13:46 → TRANSITION 19:51 → MED 08-17 20:11
PROVIDERS: ADMIT Internal Medicine; ATTEND Nurse Practitioner Acute Care
PROC: 0QSC04Z Reposition Left Lower Femur with Internal Fixation Device, Open Approach (ICD-10-PCS; principal; 2020-08-18)
DX: M97.12XA Periprosthetic fracture around internal prosthetic left knee joint, initial encounter (principal); W18.30XA Fall on same level, unspecified, initial encounter; Y92.89 Other specified places as the place of occurrence of the external cause; E78.5 Hyperlipidemia, unspecified; G62.9 Polyneuropathy, unspecified; I25.10 Atherosclerotic heart disease of native coronary artery without angina pectoris; M19.90 Unspecified osteoarthritis, unspecified site; I10 Essential (primary) hypertension; E03.9 Hypothyroidism, unspecified; F03.90 Unspecified dementia, unspecified severity, without behavioral disturbance, psychotic disturbance, mood disturbance, and anxiety; Z79.82 Long term (current) use of aspirin; Z86.73 Personal history of transient ischemic attack (TIA), and cerebral infarction without residual deficits; J44.9 Chronic obstructive pulmonary disease, unspecified
CPT/HCPCS: 36415; 71045-TC; 73502; 73552; 73560-TC; 80048-TC; 83735-TC; 84100-TC; 84484-TC; 85025-TC; 85730-TC; 87081-TC; 94799-TC; 97110-TC; 97112-TC; 97530-TC; G0378; J0690; J1100; J1885; J2270; J2405; J2704; J3010; J3370; J3480; J3490; J7060; U0003

== ENCOUNTER 2023-02-05 17:30 | Inpatient (IN) | payer MEDICARE, OTHER ==
[~2023-02-05] VITALS: Ht 152.4 cm; Wt 65.8 kg
--- NOTE | 2023-02-05 17:51 | NUR ---
RACHID RAMOS [facility] SNF FOR [facility], ABDOMINAL PAIN AND DIFFICULTY URINATING X TODAY. THE PATIENT IS ATTACHED TO THE MONITIOR. WARM BLANKET PROVIDED FOR COMFORT. WILL CONTINUE TO MONITOR THE PATIENT.
--- NOTE | 2023-02-05 18:29 | NUR ---
THE PATIENT IS TAKEN TO CT VIA RNEY
--- NOTE | 2023-02-05 18:35 | NUR ---
CALLED [facility], SPOKE TO JORGE A LIZARRAGA. PER REPORT PATIENT IS NOT ACUTE ALTERED MENTATION. WAS SEND BY DR HENDRICKSON FOR COMPLAINS OF ABDOMINAL PAIN AND EDEMA NOTED TO ANNI. DR CHEN AWARE.
--- NOTE | 2023-02-05 18:50 | NUR ---
IV ACCESS ESTABLISHED RAC G#20, SALINE LOCKED, FLUSHING WELL
--- NOTE | 2023-02-05 18:55 | NUR ---
BLOOD SAMPLES AND URINE SENT TO THE LAB
[2023-02-05 19:10] LABS: BASOPHILS % (AUTO) 0.7 % (0.0-2.0); EOSINOPHILS % (AUTO) 1.2 % (0.0-6.0); HEMATOCRIT 38 % (33-45); HEMOGLOBIN 12.4 g/dL (11.5-14.8); LYMPHOCYTES # (AUTO) 2.2 K/uL (0.8-4.8); LYMPHOCYTES % (AUTO) 32.4 % (20.0-44.0); MEAN CORPUSCULAR HGB CONC 33 g/dl (31.0-36.0); MEAN CORPUSCULAR VOLUME 94 fL (82-100); MONOCYTES # (AUTO) 0.5 K/uL (0.1-1.30); MONOCYTES % (AUTO) 7.7 % (2.0-12.0); PLATELET COUNT (AUTO) 281 K/uL (150-450); RED BLOOD CELL COUNT(AUTO) 4.03 MIL/uL (4.0-5.2); WHITE BLOOD COUNT (AUTO) 6.8 K/uL (4.3-11.0)
[2023-02-05] MEDS ORDERED: GABA-532 PO (19:13)
[2023-02-05] MEDS ORDERED: PANT40TA2 PO (19:13)
[2023-02-05] MEDS ORDERED: SENN-261 PO (19:13)
[2023-02-05] MEDS ORDERED: DULO30CA52 PO (19:13)
[2023-02-05 19:32] LABS: THYROID STIMULATING HORMONE 73.421 uIU/mL (0.358-3.74)
--- NOTE | 2023-02-05 19:35 | NUR ---
RECEIVED PT AOX0. AWAKE, NOT RESPONSIVE TO VERBAL STIMULI BUT WITHDRAWS TO PAINFUL STIMULI. PATIENT WAS BROUGHT HERE EARLIER D/T ABDOMINAL PAIN. RECEIVED WITH IV RUBY ON RIGHT AC G20. VITALS CHECKED.
[2023-02-05 19:37] LABS: ALANINE AMINOTRANSFERASE 57 U/L (12-78); ALBUMIN 3.4 g/dL (3.4-5.0); ALCOHOL, BLOOD < 3 mg/dL (0-10); ALKALINE PHOSPHATASE 111 U/L (46-116); ASPARTATE AMINOTRANSFERASE 27 U/L (15-37); BILIRUBIN,DIRECT 0.1 mg/dL (0.0-0.2); BILIRUBIN,TOTAL 0.3 mg/dL (0.2-1.0); CALCIUM, SERUM 9.3 mg/dL (8.5-10.1); CARBON DIOXIDE 27 mmol/L (21-32); CHLORIDE 102 mmol/L (98-107); CREATININE 0.9 mg/dL (0.6-1.3); GLUCOSE 106 mg/dL (74-106); POTASSIUM 4.1 mmol/L (3.5-5.1); SODIUM SERUM 139 mmol/L (136-145); TOTAL PROTEIN, SERUM 7.5 g/dL (6.4-8.2); UREA NITROGEN, BLOOD 19 mg/dL (7-18)
[2023-02-05 20:35] LABS: BILIRUBIN,URINE NEGATIVE (NEGATIVE); COLOR,URINE YELLOW (YELLOW); LEUKOCYTE ESTERASE ,URINE NEGATIVE (NEGATIVE); NITRITE, URINE NEGATIVE (NEGATIVE); PROTEIN,URINE NEGATIVE (NEGATIVE); UGLUCOSE NEGATIVE (NEGATIVE); UROBILINOGEN,URINE 0.2 EU/dL (0.2)
--- NOTE | 2023-02-05 21:11 | NUR ---
ARY MAK AT BEDSIDE
--- NOTE | 2023-02-05 22:11 | NUR ---
SEEN BY OSKAR WEINSTEIN AT BEDSIDE.
--- NOTE | 2023-02-05 22:17 | NUR ---
REPORT GIVEN TO HASEEB JARA
--- NOTE | 2023-02-05 22:19 | NUR ---
TRANSFERRED PT TO ROOM BY ARROW POINT ATTACHER
[2023-02-05] MEDS ORDERED: Z GUARD REMEDY 4 OZ OINT TP PRN (22:30)
[2023-02-05] MEDS ORDERED: MAGNESIUM HYDROXIDE 30 ML UDC PO PRN (22:30)
[2023-02-05] MEDS ORDERED: TEMAZEPAM 15 MG CAPSULE PO PRN (22:30)
[2023-02-05] MEDS ORDERED: ACETAMINOPHEN 325 MG TABLET PO PRN (22:30)
[2023-02-05] MEDS ORDERED: ONDANSETRON HCL/PF 4 MG/2 ML VIAL IVP PRN (22:30)
[2023-02-05] MEDS ORDERED: MAG HYDROX/AL HYDROX/SIMETH 30 ML UDC PO PRN (22:30)
--- NOTE | 2023-02-05 23:30 | NUR ---
MS DEPARTMENT DIRECTOR NOTE RECEIVED REPORT FROM GLOBAL CATEGORY MANAGER EDILSON. PATIENT WAS BROUGHT TO THE UNIT AT AROUND 2230 VIA STRETCHER, ACCOMPANIED BY ER STAFF. PER REPORT, PATIENT WAS SENT TO THE HOSPITAL D/T WORSENING CONFUSION AND WEAKNESS. DIRECTED TO ROOM 111-2. PATIENT IS ALERT TO SELF BUT UNABLE TO ANSWER QUESTIONS. EXPLAINED ADMISSION PROCESS TO THE PATIENT. SKIN ASSESSMENT WAS DONE. SKIN IS INTACT BUT PATIENT HAS EDEMA (+3) ON LUE. VENOUS US DONE ON AFFECTED ARM BUT NO DVT WAS SEEN. ALSO NOTED WITH SEVERAL SURGICAL SCARS LIKE BILATERAL SCAR FROM MASTECTOMY AND L KNEE SURGERY. INFORMED WELT SLASHER JS ABOUT PATIENT'S BILATERAL MASTECTOMY AND SAID THAT IT IS OKAY TO USE THE IV ACCESS ON RAC 20G. VITALS TAKEN AND RECORDED. BELONGINGS CHECKED AND DOCUMENTED TOGETHER WITH THE ASSIGNED STAFF. ORIENTED TO THE ENVIRONMENT. SAFETY MEASURES IN PLACE. KEPT BED IN LOCKED AND IN LOW POSITION. SIDE RAILS UP X3. CALL LIGHT WITHIN EASY REACH.
[2023-02-05 23:57] VITALS: BP 145/90
[2023-02-06] MEDS: IV NS 0.9% 1,000 ML IV PRN (01:21)
--- NOTE | 2023-02-06 06:30 | NUR ---
MS RN CLOSING NOTE PATIENT IN BED, ASLEEP BUT EASY TO AROUSE AND RESPONDS TO VERBAL AND TACTILE STIMULI. AFEBRILE AND NOT IN ANY FORM OF ACUTE DISTRESS. BREATHING EVEN AND NON LABORED. NO C/O PAIN OR DISCOMFORT THROUGHOUT THE SHIFT. WITH IV ACCESS ON RAC 20G RUNNING WITH NS AT 75ML/HR. MD MADE AWARE ABOUT SURGICAL HISTORY OF BILATERAL MASTECTOMY AND ADVISED THAT IT IS OKAY TO USE THE IV ACCESS ON ARM. TURNED AND REPOSITIONED EVERY 2 HOURS AND TOLERATED. KEPT BED IN LOCKED AND IN LOW POSITION. SIDE RAILS UP X3. CALL LIGHT WITHIN EASY REACH. ALL NURSING NEEDS ATTENDED. ENDORSED TO INCOMING SHIFT FOR CONTINUITY OF CARE.
--- NOTE | 2023-02-06 07:25 | NUR ---
RN OPENING NOTES: RECEIVED PATIENT IN BED, AWAKE, A/O X 2-3 WITH PERIODS OF CONFUSION, ABLE TO MAKE NEEDS KNOWN, DENIES PAIN AT THIS TIME. ON ROOM AIR, WITH NO S/S OF SOB, BREATHING EVEN AND UNLABORED. IV ACCESS AT RAC #20G PATENT AND INTACT. ALL SAFETY MEASURES ARE IN PLACE, HOB ELEVATED, CALL LIGHT AND TABLE WITHIN EASY REACH; WILL CONTINUE TO MONITOR THE PATIENT THE ENTIRE SHIFT.
[2023-02-06] MEDS ORDERED: LEVOTHYROXINE SODIUM 137 MCG TABLET PO SCH (07:30)
[2023-02-06 08:00] VITALS: BP 154/94
[2023-02-06] MEDS: PANTOPRAZOLE 40 MG TABLET.DR PO SCH (08:11)
[2023-02-06] MEDS: ASPIRIN 81 MG TAB.CHEW PO SCH (08:20)
[2023-02-06] MEDS: DULOXETINE HCL 30 MG CAPSULE.DR PO SCH (08:20)
[2023-02-06] MEDS: MEMANTINE HCL 5 MG TABLET PO SCH ×2 (08:20→16:25)
[2023-02-06] MEDS: SENNOSIDES 8.6 MG TABLET PO SCH ×2 (08:20→16:25)
[2023-02-06] MEDS: POLYETHYLENE GLYCOL 3350 17 GM POWD.PACK PO SCH (08:20)
[2023-02-06 11:24] LABS: BASOPHILS # (AUTO) 0.1 K/uL (0.0-0.2); BASOPHILS % (AUTO) 0.9 % (0.0-2.0); EOSINOPHILS % (AUTO) 1.1 % (0.0-6.0); HEMATOCRIT 37 % (33-45); HEMOGLOBIN 12.4 g/dL (11.5-14.8); LYMPHOCYTES # (AUTO) 1.8 K/uL (0.8-4.8); LYMPHOCYTES % (AUTO) 25.9 % (20.0-44.0); MEAN CORPUSCULAR HGB CONC 34 g/dl (31.0-36.0); MEAN CORPUSCULAR VOLUME 93 fL (82-100); MONOCYTES # (AUTO) 0.5 K/uL (0.1-1.30); MONOCYTES % (AUTO) 7.5 % (2.0-12.0); NEUTROPHILS # (AUTO) 4.6 K/uL (1.8-8.9); NEUTROPHILS % (AUTO) 64.6 % (43.0-81.0); PLATELET COUNT (AUTO) 267 K/uL (150-450); RED BLOOD CELL COUNT(AUTO) 3.96 MIL/uL (4.0-5.2); WHITE BLOOD COUNT (AUTO) 7.1 K/uL (4.3-11.0)
[2023-02-06 11:29] LABS: CALCIUM, SERUM 9.3 mg/dL (8.5-10.1); CREATININE 0.6 mg/dL (0.6-1.3); MAGNESIUM 2.2 mg/dL (1.8-2.4); PHOSPHORUS 3.9 mg/dL (2.5-4.9); POTASSIUM 3.9 mmol/L (3.5-5.1)
[2023-02-06 16:00] VITALS: BP 148/97
--- NOTE | 2023-02-06 19:30 | NUR ---
RN CLOSING NOTES: RECEIVED PATIENT IN BED, AWAKE, A/O X 2-3 WITH PERIODS OF CONFUSION, ABLE TO MAKE NEEDS KNOWN, DENIES PAIN AT THIS TIME. ON ROOM AIR, WITH NO S/S OF SOB, BREATHING EVEN AND UNLABORED. IV ACCESS AT RAC #20G PATENT AND INTACT. ALL NEEDS ATTENDED AND ANTICIPATED.ALL SAFETY MEASURES ARE IN PLACE, HOB ELEVATED, CALL LIGHT AND TABLE WITHIN EASY REACH; WILL ENDORSE TO ENVIRONMENTAL HEALTH NURSE NURSE
--- NOTE | 2023-02-06 19:50 | NUR ---
MS RN OPENING NOTES RECEIVED PATIENT IN BED, AWAKE. PT A/O X 2-3 WITH PERIODS OF CONFUSION, ABLE TO MAKE NEEDS KNOWN. DENIES PAIN AT THIS TIME. ON ROOM AIR, WITH NO S/S OF SOB, BREATHING EVEN AND UNLABORED. IV ACCESS TO RIGHT AC #20G PATENT AND INTACT. ALL SAFETY MEASURES ARE IN PLACE, HOB ELEVATED, CALL LIGHT AND TABLE WITHIN EASY REACH, SR UP X2. WILL CONTINUE TO MONITOR THE PATIENT THROUGHOUT SHIFT.
[2023-02-06 20:00] VITALS: BP 177/95
--- NOTE | 2023-02-06 21:00 | NUR ---
MS RN NOTE PT'S BP WAS 177/95. BP RECHECKED. NOW BP IS: 151/97.
[2023-02-06] MEDS: ATORVASTATIN 10 MG TABLET PO SCH (22:56)
[2023-02-06] MEDS: DONEPEZIL 5 MG TABLET PO SCH (22:56)
[2023-02-06] MEDS: GABAPENTIN 100 MG CAPSULE PO SCH (22:56)
[2023-02-06] MEDS: QUETIAPINE FUMARATE 25 MG TABLET PO SCH (22:57)
--- NOTE | 2023-02-07 00:30 | NUR ---
TRAIN CONTROLLER NOTE MD WEINSTEIN AWARE OF PT'S LOW BP. Addendum: 02/07/23 at 0416 by TEDDY BRITO RN WRONG ENTRY. PLEASE DISREGARD NOTE.
--- NOTE | 2023-02-07 06:40 | NUR ---
MS RN NOTE PT LEFT IN BED SLEEPING. NO S/S OF DISTRESS. SAFETY PRECAUTIONS IN PLACE. WILL ENDORSE TO AM SHIFT NURSE FOR ESTEPHANIA.
[2023-02-07 06:49] LABS: BASOPHILS % (AUTO) 0.6 % (0.0-2.0); EOSINOPHILS % (AUTO) 1.8 % (0.0-6.0); HEMATOCRIT 36 % (33-45); HEMOGLOBIN 11.9 g/dL (11.5-14.8); LYMPHOCYTES # (AUTO) 1.9 K/uL (0.8-4.8); LYMPHOCYTES % (AUTO) 25.7 % (20.0-44.0); MEAN CORPUSCULAR HGB CONC 34 g/dl (31.0-36.0); MEAN CORPUSCULAR VOLUME 93 fL (82-100); MONOCYTES # (AUTO) 0.7 K/uL (0.1-1.30); MONOCYTES % (AUTO) 9.7 % (2.0-12.0); NEUTROPHILS # (AUTO) 4.5 K/uL (1.8-8.9); NEUTROPHILS % (AUTO) 62.2 % (43.0-81.0); PLATELET COUNT (AUTO) 259 K/uL (150-450); RED BLOOD CELL COUNT(AUTO) 3.82 MIL/uL (4.0-5.2); WHITE BLOOD COUNT (AUTO) 7.3 K/uL (4.3-11.0)
--- NOTE | 2023-02-07 07:15 | NUR ---
ms rn received on bed, awake,alert,oriented x1-2,not in any form of distress,respirations even and unlabored,no sob noted, lungs are diminish,abdomen soft,positive bowel sounds,denies pian at this time,all needs attended.
[2023-02-07 08:00] VITALS: BP 174/89
[2023-02-07 08:11] LABS: CALCIUM, SERUM 9.2 mg/dL (8.5-10.1); CREATININE 0.6 mg/dL (0.6-1.3); MAGNESIUM 2.1 mg/dL (1.8-2.4); PHOSPHORUS 3.4 mg/dL (2.5-4.9); POTASSIUM 3.7 mmol/L (3.5-5.1)
[2023-02-07 08:30] VITALS: BP 174/89
--- NOTE | 2023-02-07 10:00 | NUR ---
ms rn was seen by gamaliel rod/ orders made and out.
--- NOTE | 2023-02-07 10:05 | NUR ---
ms mcconnell breakfast served,due meds given given tolerated well.
[2023-02-07] MEDS: SENNOSIDES 8.6 MG TABLET PO SCH ×2 (10:13→18:50)
[2023-02-07] MEDS: LEVOTHYROXINE SODIUM 75 MCG TABLET PO SCH (10:14)
[2023-02-07] MEDS: ASPIRIN 81 MG TAB.CHEW PO SCH (10:14)
[2023-02-07] MEDS: PANTOPRAZOLE 40 MG TABLET.DR PO SCH (10:15)
[2023-02-07] MEDS: DULOXETINE HCL 30 MG CAPSULE.DR PO SCH (10:15)
[2023-02-07] MEDS: MEMANTINE HCL 5 MG TABLET PO SCH ×2 (10:15→18:50)
[2023-02-07] MEDS: AMLODIPINE BESYLATE 5 MG TABLET PO SCH (10:15)
[2023-02-07] MEDS: POLYETHYLENE GLYCOL 3350 17 GM POWD.PACK PO SCH (10:17)
--- NOTE | 2023-02-07 15:00 | NUR ---
ms rn on bed,no distress noted, xr of left shoulder, negative,all needs attended.
[2023-02-07 17:30] VITALS: BP 175/90
--- NOTE | 2023-02-07 17:45 | NUR ---
ms rn on bed, all needs attended, no distress noted.
[2023-02-07 18:00] VITALS: BP 145/90
--- NOTE | 2023-02-07 19:00 | NUR ---
RN OPENING NOTE RECEIVED PT AWAKE IN BED. PT IS A/O X 1. PT IS RA TOLERATING WELL, BREATHING EVEN AND UNLABORED @ THIS TIME. PT IV PRESENT IN RIGHT AC #20G RUNNING NS @ 75MLS/HR, PATENT, INTACT AND FLUSHES WELL W/ NO S&SX OF INFILTRATION @ SITE NOTED. PT PURE WICK IS IN PLACE DRAINING YELLOW COLORED URINE. SAFETY MEASURES IS IN PLACE. BED IN LOWEST AND LOCK POSITION. SIDE RAILS UP X 2. BEDSIDE TABLE AND CALL LIGHT IS EASY REACH. BED ALARM IS ON. WILL CONTINUE TO MONITOR PT ACCORDINGLY.
[2023-02-07 20:00] VITALS: BP 161/95
[2023-02-07] MEDS: IV NS 0.9% 1,000 ML IV PRN (20:34)
[2023-02-07] MEDS: ATORVASTATIN 10 MG TABLET PO SCH (21:29)
[2023-02-07] MEDS: DONEPEZIL 5 MG TABLET PO SCH (21:30)
[2023-02-07] MEDS: QUETIAPINE FUMARATE 25 MG TABLET PO SCH (21:31)
[2023-02-07] MEDS: GABAPENTIN 100 MG CAPSULE PO SCH (21:34)
--- NOTE | 2023-02-08 06:48 | NUR ---
RN CLOSING NOTE PT IS AWAKE & RESTING COMFORTABLY IN BED. PT IS A/O X 1, FOLLOWS VERBAL COMMAND. PT IS RA W/ NO S&SX OF RESPIRATORY DISTRESS @ THIS TIME. PT IV PRESENT IN RIGHT AC #20G RUNNING NS @ 75MLS/HR, PATENT, INTACT AND FLUSHES WELL W/ NO S&SX OF INFILTRATION @ SITE NOTED. PT PURE WICK IS IN PLACE DRAINING YELLOW COLORED URINE. SAFETY MEASURES IS IN PLACE. BED IN LOWEST AND LOCK POSITION. SIDE RAILS UP X 2. BEDSIDE TABLE AND CALL LIGHT IS EASY REACH. BED ALARM IS ON. WILL ENDORSE TO THE NEXT SHIFT FOR ESTEPHANIA.
[2023-02-08 07:37] LABS: BASOPHILS # (AUTO) 0.1 K/uL (0.0-0.2); BASOPHILS % (AUTO) 0.8 % (0.0-2.0); EOSINOPHILS % (AUTO) 1.4 % (0.0-6.0); HEMATOCRIT 39 % (33-45); HEMOGLOBIN 12.8 g/dL (11.5-14.8); LYMPHOCYTES # (AUTO) 1.8 K/uL (0.8-4.8); LYMPHOCYTES % (AUTO) 20.6 % (20.0-44.0); MEAN CORPUSCULAR HGB CONC 33 g/dl (31.0-36.0); MEAN CORPUSCULAR VOLUME 95 fL (82-100); MONOCYTES # (AUTO) 0.7 K/uL (0.1-1.30); NEUTROPHILS % (AUTO) 69.2 % (43.0-81.0); PLATELET COUNT (AUTO) 284 K/uL (150-450); RED BLOOD CELL COUNT(AUTO) 4.12 MIL/uL (4.0-5.2); WHITE BLOOD COUNT (AUTO) 8.7 K/uL (4.3-11.0)
[2023-02-08 07:55] LABS: CREATININE 0.7 mg/dL (0.6-1.3); MAGNESIUM 2.1 mg/dL (1.8-2.4); PHOSPHORUS 3.2 mg/dL (2.5-4.9); POTASSIUM 3.6 mmol/L (3.5-5.1)
--- NOTE | 2023-02-08 08:10 | NUR ---
RN OPENING NOTE RECEIVED PATIENT IN BED, AWAKE, A/O X 1. NO SIGNS OF ACUTE DISTRESS NOTED. ON ROOM AIR, TOLERATING WELL. NO SOB NOTED, BREATHING EVEN AND UNLABORED. NOTED WITH IV ACCESS ON RIGHT AC #20G RUNNING NS @ 75MLS/HR, PATENT AND INTACT. PATIENT IS ON PURE WICK DRAINING YELLOW COLORED URINE. SAFETY MEASURES IS IN PLACE. BED IN LOW AND LOCKED POSITION; SIDE RAILS UP X 2. BEDSIDE TABLE AND CALL LIGHT WITHIN EASY REACH. WILL CONTINUE WITH PLAN OF CARE.
[2023-02-08] MEDS: POLYETHYLENE GLYCOL 3350 17 GM POWD.PACK PO SCH (08:55)
[2023-02-08] MEDS: PANTOPRAZOLE 40 MG TABLET.DR PO SCH (08:55)
[2023-02-08] MEDS: AMLODIPINE BESYLATE 5 MG TABLET PO SCH (08:56)
[2023-02-08] MEDS: SENNOSIDES 8.6 MG TABLET PO SCH ×2 (08:56→16:11)
[2023-02-08] MEDS: MEMANTINE HCL 5 MG TABLET PO SCH ×2 (08:56→16:11)
[2023-02-08] MEDS: LEVOTHYROXINE SODIUM 75 MCG TABLET PO SCH (08:56)
[2023-02-08] MEDS: ASPIRIN 81 MG TAB.CHEW PO SCH (08:56)
[2023-02-08] MEDS: DULOXETINE HCL 30 MG CAPSULE.DR PO SCH (09:00)
[2023-02-08 09:28] VITALS: BP 174/99
[2023-02-08] MEDS ORDERED: LEVO75TA PO (10:06)
[2023-02-08] MEDS ORDERED: HYDR-4076 PO (10:06)
[2023-02-08] MEDS ORDERED: AMLO-212 PO (10:06)
[2023-02-08] MEDS: hydrALAZINE HCL 25 MG TABLET PO SCH ×3 (11:24→21:04)
[2023-02-08 18:34] VITALS: BP 144/91
--- NOTE | 2023-02-08 18:57 | NUR ---
MS RN CLOSING NOTE PATIENT IN BED, AWAKE, A/O X 1. NO SIGNS OF ACUTE DISTRESS NOTED. ON ROOM AIR, TOLERATED WELL. NO SOB NOTED, BREATHING EVEN AND UNLABORED. NOTED WITH IV ACCESS ON RIGHT AC #20G RUNNING NS @ 75MLS/HR, PATENT AND INTACT. PATIENT IS ON PURE WICK DRAINING YELLOW COLORED URINE. SAFETY MEASURES IS IMPLEMENTED. BED IN LOW AND LOCKED POSITION; SIDE RAILS UP X 2. BEDSIDE TABLE AND CALL LIGHT WITHIN EASY REACH. WILL ENDORSE TO SALES ASSISTANT DISPLAYS NURSE FOR CONTINUITY OF CARE.
--- NOTE | 2023-02-08 19:00 | NUR ---
RN OPENING NOTE RECEIVED PT AWAKE IN BED. PT IS A/O X 1. PT IS RA TOLERATING WELL, BREATHING EVEN AND UNLABORED @ THIS TIME. PT IV PRESENT IN RIGHT AC #20G RUNNING NS @ 75MLS/HR, PATENT, INTACT AND FLUSHES WELL W/ NO S&SX OF INFILTRATION @ SITE NOTED. PT PURE WICK IS IN PLACE DRAINING YELLOW COLORED URINE. SAFETY MEASURES IS IN PLACE. BED IN LOWEST AND LOCK POSITION. SIDE RAILS UP X 4. BEDSIDE TABLE AND CALL LIGHT IS EASY REACH. BED ALARM IS ON. WILL CONTINUE TO MONITOR PT ACCORDINGLY.
[2023-02-08 20:00] VITALS: BP 166/97
[2023-02-08] MEDS: DONEPEZIL 5 MG TABLET PO SCH (21:04)
[2023-02-08] MEDS: QUETIAPINE FUMARATE 25 MG TABLET PO SCH (21:05)
[2023-02-08] MEDS: GABAPENTIN 100 MG CAPSULE PO SCH (21:06)
[2023-02-08] MEDS: ATORVASTATIN 10 MG TABLET PO SCH (21:06)
[2023-02-08] MEDS: IV NS 0.9% 1,000 ML IV PRN (23:11)
[2023-02-09] MEDS: hydrALAZINE HCL 25 MG TABLET PO SCH ×3 (04:05→21:22)
--- NOTE | 2023-02-09 06:31 | NUR ---
RN CLOSING NOTE PT IS AWAKE & RESTING COMFORTABLY IN BED. PT IS A/O X 1, RESPONSIVE AND FOLLOWS VERBAL COMMAND. PT IS RA W/ NO S&SX OF RESPIRATORY DISTRESS @ THIS TIME. PT IV PRESENT IN RIGHT AC #20G RUNNING NS @ 75MLS/HR, PATENT, INTACT AND FLUSHES WELL W/ NO S&SX OF INFILTRATION @ SITE NOTED. PT PURE WICK IS IN PLACE DRAINING YELLOW COLORED URINE. SAFETY MEASURES IS IN PLACE. BED IN LOWEST AND LOCK POSITION. SIDE RAILS UP X 4. BEDSIDE TABLE AND CALL LIGHT IS EASY REACH. BED ALARM IS ON. WILL ENDORSE TO THE NEXT SHIFT FOR ESTEPHANIA.
--- NOTE | 2023-02-09 07:10 | NUR ---
RN OPENING NOTE RECEIVED PT IS ASLEEP BUT AROUSABLE. PT IS A/O X 1, RESPONSIVE AND FOLLOWS VERBAL COMMAND. PT IS RA W/ NO S&SX OF RESPIRATORY DISTRESS @ THIS TIME. PT IV PRESENT IN RIGHT AC #20G RUNNING NS @ 75MLS/HR, C/D/I. PT IN PURE WICK, DRAINING YELLOW COLORED URINE. SAFETY MEASURES IS IN PLACE. BED IN LOWEST AND LOCK POSITION. SIDE RAILS UP X 4. BEDSIDE TABLE AND CALL LIGHT IS EASY REACH. BED ALARM IS ON. WILL CONTINUE TO MONITOR
[2023-02-09 08:00] VITALS: BP 152/88
[2023-02-09] MEDS: LEVOTHYROXINE SODIUM 75 MCG TABLET PO SCH (08:07)
[2023-02-09] MEDS: ASPIRIN 81 MG TAB.CHEW PO SCH (08:08)
[2023-02-09] MEDS: PANTOPRAZOLE 40 MG TABLET.DR PO SCH (08:08)
[2023-02-09] MEDS: DULOXETINE HCL 30 MG CAPSULE.DR PO SCH (08:08)
[2023-02-09] MEDS: MEMANTINE HCL 5 MG TABLET PO SCH ×2 (08:08→17:17)
[2023-02-09] MEDS: POLYETHYLENE GLYCOL 3350 17 GM POWD.PACK PO SCH (08:09)
[2023-02-09] MEDS: AMLODIPINE BESYLATE 5 MG TABLET PO SCH (08:09)
[2023-02-09] MEDS: SENNOSIDES 8.6 MG TABLET PO SCH ×2 (08:09→17:17)
[2023-02-09] MEDS: IV NS 0.9% 1,000 ML IV PRN (15:56)
[2023-02-09 16:00] VITALS: BP 154/95
--- NOTE | 2023-02-09 18:52 | NUR ---
RN CLOSING NOTE PT IS AWAKE, A/O X 1, RESPONSIVE AND FOLLOWS VERBAL COMMAND. PT IS RA W/ NO S&SX OF RESPIRATORY DISTRESS @ THIS TIME. PT IV PRESENT IN RIGHT AC #20G RUNNING NS @ 75MLS/HR, PATENT, INTACT AND FLUSHES WELL W/ NO S&SX OF INFILTRATION @ SITE NOTED. PT PURE WICK IS IN PLACE DRAINING YELLOW COLORED URINE. SAFETY MEASURES IS IN PLACE. BED IN LOWEST AND LOCK POSITION. SIDE RAILS UP X 4. BEDSIDE TABLE AND CALL LIGHT IS EASY REACH. BED ALARM IS ON. WILL ENDORSE TO THE NEXT SHIFT NURSE FOR ESTEPHANIA.
--- NOTE | 2023-02-09 19:10 | NUR ---
MS RN OPENING NOTE PATIENT IS RESTING IN BED. SHE IS AWAKE, ALERT; AO X 1. PT IS ON RA, TOLERATED WELL; NO S/S OF DISTRESS OR SOB. IV ACCESS IS AT HER R AC, INFUSING NS @ 75 ML/HR. IV SITE IS PATENT AND INTACT. SAFETY MEASURES ARE IN PLACED: BED IN LOWEST AND LOCKED POSITION; SIDE RAILS UP X 2; CALL LIGHT AND TABLE ARE WITHIN REACH. WILL CONTINUE MONITORING THE PT AND PROVIDE THE CARE PT NEEDS.
[2023-02-09 20:00] VITALS: BP 149/82
[2023-02-09] MEDS: DONEPEZIL 5 MG TABLET PO SCH (21:21)
[2023-02-09] MEDS: GABAPENTIN 100 MG CAPSULE PO SCH (21:21)
[2023-02-09] MEDS: QUETIAPINE FUMARATE 25 MG TABLET PO SCH (21:21)
[2023-02-09] MEDS: ATORVASTATIN 10 MG TABLET PO SCH (21:21)
[2023-02-10] MEDS: IV NS 0.9% 1,000 ML IV PRN (02:36)
[2023-02-10] MEDS: hydrALAZINE HCL 25 MG TABLET PO SCH (05:26)
--- NOTE | 2023-02-10 06:42 | NUR ---
MS RN CLOSING NOTE PATIENT IS RESTING IN BED. SHE IS AWAKE, ALERT; AO X 1. PT IS ON RA, TOLERATED WELL; NO S/S OF DISTRESS OR SOB. IV ACCESS IS AT HER R AC, INFUSING NS @ 75 ML/HR. IV SITE IS PATENT AND INTACT. SAFETY MEASURES ARE IN PLACED: BED IN LOWEST AND LOCKED POSITION; SIDE RAILS UP X 2; CALL LIGHT AND TABLE ARE WITHIN REACH. WILL ENDORSE NEXT SHIFT NURSE FOR CONTINUING PT CARE.
--- NOTE | 2023-02-10 07:27 | NUR ---
MS RN OPENING NOTES RECEIVED PT IN BED, ASLEEP EASILY AWAKEN, AOX1, BREATHING WITHOUT DIFFICULTY ON ROOM AIR, NO ACUTE DISTRESS PRESENT. IV ACCESS ON RAC G#20 WITH RUNNING NS @ 75 ML/HR, PATENT AND INFUSING WELL. FLACC SCORE 0. SAFETY MEASURES IN PLACE: BED IN LOWEST AND LOCKED POSITION; SIDE RAILS UP X 2; CALL LIGHT AND TABLE WITHIN EASY REACH. WILL CONTINUE TO MONITOR. Addendum: 02/10/23 at 0918 by ANA LILIA DE LA VEGA RN PATIENT IS ON PUREWICK CONNECTED TO WALL SUCTION, PATENT AND DRAINING WELL.
[2023-02-10] MEDS: PANTOPRAZOLE 40 MG TABLET.DR PO SCH (07:42)
[2023-02-10] MEDS: LEVOTHYROXINE SODIUM 75 MCG TABLET PO SCH (07:43)
[2023-02-10 08:00] VITALS: BP 143/87
--- NOTE | 2023-02-10 09:07 | NUR ---
RN NOTES - WOUND CARE NURSE AT BEDSIDE, ASSESSMENT DONE, SACRAL SCARRING NOTED, PICTURE TAKEN AND FILE.
--- NOTE | 2023-02-10 09:07 | NUR ---
WOUND CARE CONSULT: PT PRESENTS WITH SACRAL SCARRING, PRESENT ON ADMISSION. DISCUSSED SKIN PROTECTION WITH NURSING STAFF. PURE WICK IS IN USE FOR URINARY INCONTINENCE. IN AGREEMENT WITH PLAN OF CARE. Addendum: 02/10/23 at 0908 by DESIRAE PENA WNDNU Amended: Links added.
--- NOTE | 2023-02-10 09:13 | NUR ---
RN NOTES - PT AT BEDSIDE DOING EXERCISES
[2023-02-10 09:19] VITALS: BP 143/87
[2023-02-10] MEDS: DULOXETINE HCL 30 MG CAPSULE.DR PO SCH (09:19)
[2023-02-10] MEDS: MEMANTINE HCL 5 MG TABLET PO SCH (09:19)
[2023-02-10] MEDS: AMLODIPINE BESYLATE 5 MG TABLET PO SCH (09:19)
[2023-02-10] MEDS: ASPIRIN 81 MG TAB.CHEW PO SCH (09:19)
[2023-02-10] MEDS: SENNOSIDES 8.6 MG TABLET PO SCH (09:19)
[2023-02-10] MEDS: POLYETHYLENE GLYCOL 3350 17 GM POWD.PACK PO SCH (09:20)
--- NOTE | 2023-02-10 11:17 | NUR ---
RN NOTES - GAVE REPORT TO ASIF RAMOS, SPOKE TO ELHAM BRONSON AND GAVE REPORT. ATTEMPTED TO CALL EBONIE NEGRON AT [phone], NO ANSWER.
--- NOTE | 2023-02-10 12:11 | NUR ---
MS NEGOTIATOR SALES NOTES PATIENT IS DISCHARGED TO [facility] IN STABLE CONDITION, PATIENT IS AOX1, MOSTLY NON-VERBAL, PATIENT IS ON ROOM AIR BREATHING WITHOUT ANY DIFFICULTY, FLACC SCORE 0, NO COMPLAINTS OF PAIN AT THE MOMENT. VITAL SIGNS TAKEN AND RECORDED, STABLE. DISCHARGE INSTRUCTIONS GIVEN TO ELHAM BRONSON AT THE [facility]. NO BELONGINGS EXCEPT FOR THE BLANKET, FORM HAS BEEN CO-SIGNED. REMOVED IV ACCESS ON THE RAC, NO ACTIVE BLEEDING NOTED. PRESSURE GAUZE APPLIED. PATIENT LEFT THE UNIT AT 1210 PICKED UP BY 3 PHONE CIRCUIT OPERATOR. MD AND CHARGE NURSE AWARE OF THE DC.
== END 2023-02-10 13:30 | DRG 640 ==
LOC: ER 17:53 → MED 21:02
PROVIDERS: ADMIT Nurse Practitioner Acute Care; ATTEND Nurse Practitioner Acute Care
DX: R62.7 Adult failure to thrive (principal); G93.41 Metabolic encephalopathy; F01.54 Vascular dementia, unspecified severity, with anxiety; F01.53 Vascular dementia, unspecified severity, with mood disturbance; K21.9 Gastro-esophageal reflux disease without esophagitis; I10 Essential (primary) hypertension; J44.9 Chronic obstructive pulmonary disease, unspecified; F41.9 Anxiety disorder, unspecified; K29.70 Gastritis, unspecified, without bleeding; Z88.8 Allergy status to other drugs, medicaments and biological substances; Z79.899 Other long term (current) drug therapy; E03.9 Hypothyroidism, unspecified; E78.5 Hyperlipidemia, unspecified; I25.10 Atherosclerotic heart disease of native coronary artery without angina pectoris; R22.32 Localized swelling, mass and lump, left upper limb; R79.89 Other specified abnormal findings of blood chemistry; Z96.652 Presence of left artificial knee joint; Z86.73 Personal history of transient ischemic attack (TIA), and cerebral infarction without residual deficits; K57.30 Diverticulosis of large intestine without perforation or abscess without bleeding; N20.0 Calculus of kidney; D35.02 Benign neoplasm of left adrenal gland; M19.90 Unspecified osteoarthritis, unspecified site; E86.0 Dehydration; Z79.890 Hormone replacement therapy
CPT/HCPCS: 36415; 73030-TC; 80048-TC; 80061-TC; 80076-TC; 83735-TC; 84100-TC; 84439-TC; 84443-TC; 85025-TC; 87081-TC; 92526; 92611-TC; 93971-TC; 97110-TC; 97112-TC; 97530-TC; A4223; G0378; G0480; J7030

== ENCOUNTER 2023-07-31 18:40 | Inpatient (IN) | payer MEDICARE, OTHER ==
[~2023-07-31] VITALS: Ht 172.7 cm; Wt 61.7 kg
[~2023-07-31 18:40] MED LIST changes: -ALBU8.5H8 IH; +AMLO-212 PO; -AMLO5TAB4 PO; -ASCO500T10 PO; -ASPI-605 PO; -BISA10SU11 RC; -CALC1TAB30 PO; -CRAN425C6 PO; -CYAN-51 PO; -DOCU-141 PO; +DULO30CA52 PO; -DULO60CA64 PO; -FLUT15.845 NS; +GABA-532 PO; -GABA-534 PO; +HYDR-4076 PO; -LEVO100T9 PO; +LEVO75TA PO; -LOSA100T31 PO; -MELA1TAB27 PO; -MULT-439 PO; -NA P133E RC; -OMEG1CAP PO; -OMEP20CA15 PO; +PANT40TA2 PO; -POLY15DR40 EACHEYE; +SENN-261 PO
[2023-07-31] MEDS ORDERED: CEFEPIME 1 GM in IV D5W 50 ML IV ONE (20:00)
[2023-07-31] MEDS ORDERED: VANCOMYCIN 1 GM in IV D5W 250 ML IV ONE (20:00)
[2023-07-31 20:21] LABS: BASOPHILS # (AUTO) 0.2 K/uL (0.0-0.2); BASOPHILS % (AUTO) 1.4 % (0.0-2.0); EOSINOPHILS # (AUTO) 0.1 K/uL (0.0-0.7); EOSINOPHILS % (AUTO) 0.5 % (0.0-6.0); HEMATOCRIT 41 % (33-45); HEMOGLOBIN 13.5 g/dL (11.5-14.8); LYMPHOCYTES # (AUTO) 0.8 K/uL (0.8-4.8); LYMPHOCYTES % (AUTO) 6.3 % (20.0-44.0); MEAN CORPUSCULAR HEMOGLOBIN 30 PG (26.0-33.0); MEAN CORPUSCULAR HGB CONC 33 g/dl (31.0-36.0); MEAN CORPUSCULAR VOLUME 91 fL (82-100); MONOCYTES # (AUTO) 0.4 K/uL (0.1-1.30); MONOCYTES % (AUTO) 3.3 % (2.0-12.0); NEUTROPHILS # (AUTO) 10.9 K/uL (1.8-8.9); NEUTROPHILS % (AUTO) 88.5 % (43.0-81.0); PLATELET COUNT (AUTO) 295 K/uL (150-450); RED BLOOD CELL COUNT(AUTO) 4.51 MIL/uL (4.0-5.2); RED CELL DISTRIBUTION WIDTH 14.3 % (11.5-15.0); WHITE BLOOD COUNT (AUTO) 12.4 K/uL (4.3-11.0)
[2023-07-31 20:27] LABS: APPEARANCE,URINE SLIGHTLY CLOUDY (CLEAR); BILIRUBIN,URINE NEGATIVE (NEGATIVE); BLOOD, URINE 1+ Ery/uL (NEGATIVE); COLOR,URINE YELLOW (YELLOW); KETONES,URINE NEGATIVE (NEGATIVE); LEUKOCYTE ESTERASE ,URINE 1+ (NEGATIVE); NITRITE, URINE POSITIVE (NEGATIVE); PROTEIN,URINE TRACE mg/dl (NEGATIVE); UGLUCOSE NEGATIVE (NEGATIVE); UROBILINOGEN,URINE 0.2 EU/dL (0.2)
[2023-07-31 20:29] LABS: CALCIUM, SERUM 9.1 mg/dL (8.5-10.1); CARBON DIOXIDE 28 mmol/L (21-32); CHLORIDE 98 mmol/L (98-107); CREATININE 0.7 mg/dL (0.6-1.3); GLUCOSE 159 mg/dL (74-106); POTASSIUM 3.6 mmol/L (3.5-5.1); SODIUM SERUM 133 mmol/L (136-145); UREA NITROGEN, BLOOD 12 mg/dL (7-18)
[2023-07-31 20:36] LABS: INR 0.96 (0.91-1.10); PARTIAL THROMBOPLASTIN TIME 27.3 SEC (24.3-34.3); PROTHROMBIN TIME 10.2 SECS (9.2-11.1)
[2023-07-31 20:50] LABS: ADD URINE CULTURE YES; BACTERIA,URINE 4+ /HPF (None Seen); RBC,URINE 21-50 /HPF (0-2); SQUAMOUS EPITHELIAL CELL,UR 0-2 /HPF (None Seen); WBC,URINE 21-50 /HPF (0-3)
[2023-07-31 20:56] LABS: LACTIC ACID 2.2 mmol/L (0.4-2.0)
[2023-07-31 21:17] LABS: ALANINE AMINOTRANSFERASE 20 U/L (12-78); ALBUMIN 3.4 g/dL (3.4-5.0); ALKALINE PHOSPHATASE 121 U/L (46-116); ASPARTATE AMINOTRANSFERASE 21 U/L (15-37); BILIRUBIN,DIRECT 0.1 mg/dL (0.0-0.2); BILIRUBIN,TOTAL 0.3 mg/dL (0.2-1.0); TOTAL PROTEIN, SERUM 7.6 g/dL (6.4-8.2)
[2023-07-31] MEDS ORDERED: MAG HYDROX/AL HYDROX/SIMETH 30 ML UDC PO PRN (22:00)
[2023-07-31] MEDS ORDERED: Z GUARD REMEDY 4 OZ OINT TP PRN (22:00)
[2023-07-31] MEDS ORDERED: ZOLPIDEM TARTRATE 5 MG TABLET PO PRN (22:00)
[2023-07-31] MEDS ORDERED: ONDANSETRON HCL/PF 4 MG/2 ML VIAL IVP PRN (22:00)
[2023-07-31] MEDS ORDERED: hydrALAZINE HCL IV 20 MG VIAL IV PRN (22:00)
[2023-07-31] MEDS ORDERED: ACETAMINOPHEN 325 MG TABLET PO PRN (22:00)
[2023-07-31] MEDS ORDERED: MAGNESIUM HYDROXIDE 30 ML UDC PO PRN (22:00)
[2023-07-31 22:07] LABS: BAND % (MANUAL) 5 % (0.0-5.0); LYMPHOCYTES % (MANUAL) 10 % (16-48); MONOCYTES % (MANUAL) 8 % (0-11.0); NEUTROPHILS % (MANUAL) 77 (42-76); PLATELET ESTIMATE ADEQUATE
[2023-07-31 22:08] LABS: ANISOCYTOSIS 1+; OVALOCYTES RARE
[2023-07-31] MEDS ORDERED: ENOXAPARIN SODIUM 30 MG/0.3 ML DISP.SYRIN SQ SCH (23:00)
[2023-07-31 23:45] VITALS: BP 115/79; TEMP 99.5; O2SAT 95
[2023-08-01] VITALS (14 sets, daily range): BP systolic 100–152; BP diastolic 62–104; TEMP 97.7–101.1; O2SAT 94–100
[2023-08-01] MEDS: IV D5/ 0.9% NACL 1,000 ML IV PRN ×2 (00:47→13:41)
[2023-08-01] MEDS: ALBUTEROL FS 2.5 MG/3 ML VIAL.NEB NEB SCH ×4 (01:24→20:32)
[2023-08-01] MEDS: IPRATROPIUM NEB FS 0.5 MG/2.5 ML AMPUL.NEB NEB SCH ×4 (01:24→20:32)
[2023-08-01 06:44] LABS: BASOPHILS % (AUTO) 0.2 % (0.0-2.0); HEMATOCRIT 38 % (33-45); HEMOGLOBIN 12.7 g/dL (11.5-14.8); LYMPHOCYTES # (AUTO) 1.2 K/uL (0.8-4.8); LYMPHOCYTES % (AUTO) 11.9 % (20.0-44.0); MEAN CORPUSCULAR HEMOGLOBIN 30 PG (26.0-33.0); MEAN CORPUSCULAR HGB CONC 33 g/dl (31.0-36.0); MEAN CORPUSCULAR VOLUME 92 fL (82-100); MONOCYTES % (AUTO) 9.4 % (2.0-12.0); NEUTROPHILS # (AUTO) 8.2 K/uL (1.8-8.9); NEUTROPHILS % (AUTO) 78.5 % (43.0-81.0); PLATELET COUNT (AUTO) 233 K/uL (150-450); RED BLOOD CELL COUNT(AUTO) 4.17 MIL/uL (4.0-5.2); RED CELL DISTRIBUTION WIDTH 14.2 % (11.5-15.0); WHITE BLOOD COUNT (AUTO) 10.5 K/uL (4.3-11.0)
[2023-08-01 07:17] LABS: CALCIUM, SERUM 8.8 mg/dL (8.5-10.1); CARBON DIOXIDE 24 mmol/L (21-32); CHLORIDE 101 mmol/L (98-107); CREATININE 0.7 mg/dL (0.6-1.3); GLUCOSE 145 mg/dL (74-106); MAGNESIUM 2.3 mg/dL (1.8-2.4); PHOSPHORUS 3.7 mg/dL (2.5-4.9); POTASSIUM 3.3 mmol/L (3.5-5.1); SODIUM SERUM 133 mmol/L (136-145); UREA NITROGEN, BLOOD 11 mg/dL (7-18)
[2023-08-01 07:30] LABS: CHOLESTEROL 159 mg/dL (<200); HDL CHOLESTEROL 72 mg/dL (40-60); LDL 77 mg/dL (0-99); T4 (THYROXINE) 6.2 ug/dL (4.7-13.3); THYROID STIMULATING HORMONE 13.212 uIU/mL (0.358-3.74); TRIGLYCERIDES 47 mg/dL (30-150)
[2023-08-01] MEDS ORDERED: AMLO5TAB4 PO (08:15)
[2023-08-01] MEDS ORDERED: OMEP20CA15 PO (08:15)
[2023-08-01] MEDS ORDERED: LEVO150T8 PO (08:15)
[2023-08-01] MEDS ORDERED: MAG30ORA PO (08:15)
[2023-08-01] MEDS: PANTOPRAZOLE 40 MG VIAL IV SCH (08:48)
[2023-08-01] MEDS: CEFEPIME 2 GM in IV D5W 100 ML IV SCH ×2 (09:41→20:15)
[2023-08-01] MEDS: POTASSIUM CL. PREMIX PERIPHER. 50 ML IV SCH ×2 (09:42→10:55)
[2023-08-01] MEDS: VANCOMYCIN 0.75 GM in IV D5W 250 ML IV SCH ×2 (10:18→20:42)
[2023-08-01] MEDS: ACETAMINOPHEN 650 MG/SUPP.RECT RC PRN (17:24)
[2023-08-01] MEDS: ENOXAPARIN SODIUM 40 MG/0.4 ML DISP.SYRIN SQ SCH (20:31)
[2023-08-02] VITALS (13 sets, daily range): BP systolic 96–141; BP diastolic 60–89; TEMP 97.4–97.8; O2SAT 89–99
[2023-08-02] MEDS: ALBUTEROL FS 2.5 MG/3 ML VIAL.NEB NEB SCH ×4 (02:10→20:37)
[2023-08-02] MEDS: IPRATROPIUM NEB FS 0.5 MG/2.5 ML AMPUL.NEB NEB SCH ×4 (02:10→20:37)
[2023-08-02] MEDS: IV D5/ 0.9% NACL 1,000 ML IV PRN ×2 (05:30→19:26)
[2023-08-02 07:44] LABS: BASOPHILS % (AUTO) 0.3 % (0.0-2.0); EOSINOPHILS % (AUTO) 0.2 % (0.0-6.0); HEMATOCRIT 33 % (33-45); HEMOGLOBIN 11.1 g/dL (11.5-14.8); LYMPHOCYTES # (AUTO) 0.8 K/uL (0.8-4.8); LYMPHOCYTES % (AUTO) 10.3 % (20.0-44.0); MEAN CORPUSCULAR HEMOGLOBIN 31 PG (26.0-33.0); MEAN CORPUSCULAR HGB CONC 34 g/dl (31.0-36.0); MEAN CORPUSCULAR VOLUME 91 fL (82-100); MONOCYTES # (AUTO) 0.6 K/uL (0.1-1.30); MONOCYTES % (AUTO) 7.9 % (2.0-12.0); NEUTROPHILS # (AUTO) 6.4 K/uL (1.8-8.9); NEUTROPHILS % (AUTO) 81.3 % (43.0-81.0); PLATELET COUNT (AUTO) 240 K/uL (150-450); RED BLOOD CELL COUNT(AUTO) 3.63 MIL/uL (4.0-5.2); WHITE BLOOD COUNT (AUTO) 7.9 K/uL (4.3-11.0)
[2023-08-02 07:55] LABS: CALCIUM, SERUM 8.5 mg/dL (8.5-10.1); CREATININE 0.6 mg/dL (0.6-1.3); PHOSPHORUS 2.7 mg/dL (2.5-4.9); POTASSIUM 3.5 mmol/L (3.5-5.1)
[2023-08-02] MEDS: CEFEPIME 2 GM in IV D5W 100 ML IV SCH ×2 (08:21→20:10)
[2023-08-02] MEDS: PANTOPRAZOLE 40 MG VIAL IV SCH (08:24)
[2023-08-02] MEDS: VANCOMYCIN 0.75 GM in IV D5W 250 ML IV SCH ×2 (08:25→20:40)
[2023-08-02] MEDS: ENOXAPARIN SODIUM 40 MG/0.4 ML DISP.SYRIN SQ SCH (20:41)
[2023-08-03] VITALS (11 sets, daily range): BP systolic 131–144; BP diastolic 71–88; TEMP 98.5–99; O2SAT 90–98
[2023-08-03] MEDS: ALBUTEROL FS 2.5 MG/3 ML VIAL.NEB NEB SCH ×4 (01:25→20:50)
[2023-08-03] MEDS: IPRATROPIUM NEB FS 0.5 MG/2.5 ML AMPUL.NEB NEB SCH ×4 (01:25→20:50)
[2023-08-03 07:08] LABS: BASOPHILS % (AUTO) 0.3 % (0.0-2.0); EOSINOPHILS % (AUTO) 0.5 % (0.0-6.0); HEMATOCRIT 33 % (33-45); HEMOGLOBIN 11.4 g/dL (11.5-14.8); LYMPHOCYTES # (AUTO) 0.8 K/uL (0.8-4.8); LYMPHOCYTES % (AUTO) 12.2 % (20.0-44.0); MEAN CORPUSCULAR HEMOGLOBIN 31 PG (26.0-33.0); MEAN CORPUSCULAR HGB CONC 35 g/dl (31.0-36.0); MEAN CORPUSCULAR VOLUME 89 fL (82-100); MONOCYTES # (AUTO) 0.4 K/uL (0.1-1.30); MONOCYTES % (AUTO) 6.9 % (2.0-12.0); NEUTROPHILS # (AUTO) 5.1 K/uL (1.8-8.9); NEUTROPHILS % (AUTO) 80.1 % (43.0-81.0); PLATELET COUNT (AUTO) 263 K/uL (150-450); RED CELL DISTRIBUTION WIDTH 13.9 % (11.5-15.0); WHITE BLOOD COUNT (AUTO) 6.4 K/uL (4.3-11.0)
[2023-08-03 07:41] LABS: CALCIUM, SERUM 8.4 mg/dL (8.5-10.1); CARBON DIOXIDE 24 mmol/L (21-32); CHLORIDE 103 mmol/L (98-107); CREATININE 0.5 mg/dL (0.6-1.3); GLUCOSE 113 mg/dL (74-106); PHOSPHORUS 2.3 mg/dL (2.5-4.9); POTASSIUM 2.9 mmol/L (3.5-5.1); SODIUM SERUM 135 mmol/L (136-145); UREA NITROGEN, BLOOD 7 mg/dL (7-18)
[2023-08-03] MEDS: CEFEPIME 2 GM in IV D5W 100 ML IV SCH ×2 (08:10→20:57)
[2023-08-03] MEDS: PANTOPRAZOLE 40 MG VIAL IV SCH (08:31)
[2023-08-03] MEDS: VANCOMYCIN 0.75 GM in IV D5W 250 ML IV SCH ×2 (08:55→21:35)
[2023-08-03] MEDS: POTASSIUM CL. PREMIX PERIPHER. 50 ML IV SCH ×6 (10:19→16:12)
[2023-08-03] MEDS ORDERED: Sodium Phosphate 15 MMOL in IV NS 0.9% 245 ML IV ONE (16:00)
[2023-08-03] MEDS: ENOXAPARIN SODIUM 40 MG/0.4 ML DISP.SYRIN SQ SCH (21:34)
[2023-08-04] VITALS (11 sets, daily range): BP systolic 116–130; BP diastolic 84–90; TEMP 98.8–100.6; O2SAT 94–99
[2023-08-04] MEDS: IPRATROPIUM NEB FS 0.5 MG/2.5 ML AMPUL.NEB NEB SCH ×4 (02:05→20:57)
[2023-08-04] MEDS: ALBUTEROL FS 2.5 MG/3 ML VIAL.NEB NEB SCH ×4 (02:05→20:57)
[2023-08-04 07:08] LABS: BASOPHILS % (AUTO) 0.4 % (0.0-2.0); EOSINOPHILS % (AUTO) 0.3 % (0.0-6.0); HEMATOCRIT 34 % (33-45); HEMOGLOBIN 11.4 g/dL (11.5-14.8); LYMPHOCYTES # (AUTO) 1.1 K/uL (0.8-4.8); LYMPHOCYTES % (AUTO) 15.4 % (20.0-44.0); MEAN CORPUSCULAR HEMOGLOBIN 30 PG (26.0-33.0); MEAN CORPUSCULAR HGB CONC 33 g/dl (31.0-36.0); MEAN CORPUSCULAR VOLUME 89 fL (82-100); MONOCYTES # (AUTO) 0.7 K/uL (0.1-1.30); MONOCYTES % (AUTO) 10.6 % (2.0-12.0); NEUTROPHILS # (AUTO) 5.2 K/uL (1.8-8.9); NEUTROPHILS % (AUTO) 73.3 % (43.0-81.0); PLATELET COUNT (AUTO) 275 K/uL (150-450); RED BLOOD CELL COUNT(AUTO) 3.83 MIL/uL (4.0-5.2); RED CELL DISTRIBUTION WIDTH 13.8 % (11.5-15.0)
[2023-08-04 07:34] LABS: CALCIUM, SERUM 8.9 mg/dL (8.5-10.1); CREATININE 0.6 mg/dL (0.6-1.3); PHOSPHORUS 3.2 mg/dL (2.5-4.9); POTASSIUM 3.2 mmol/L (3.5-5.1)
[2023-08-04] MEDS: CEFEPIME 2 GM in IV D5W 100 ML IV SCH ×3 (08:03→21:01)
[2023-08-04] MEDS: ACETAMINOPHEN 650 MG/SUPP.RECT RC PRN (08:20)
[2023-08-04] MEDS: VANCOMYCIN 0.75 GM in IV D5W 250 ML IV SCH ×3 (09:03→21:48)
[2023-08-04] MEDS: IV D5/ 0.9% NACL 1,000 ML IV PRN (09:03)
[2023-08-04] MEDS: PANTOPRAZOLE 40 MG VIAL IV SCH (09:04)
[2023-08-04] MEDS: POTASSIUM CL. PREMIX PERIPHER. 50 ML IV SCH ×4 (11:08→14:53)
[2023-08-04] MEDS: ENOXAPARIN SODIUM 40 MG/0.4 ML DISP.SYRIN SQ SCH (21:48)
[2023-08-05 02:02] VITALS: O2SAT 96
[2023-08-05] MEDS: ALBUTEROL FS 2.5 MG/3 ML VIAL.NEB NEB SCH ×4 (02:12→19:30)
[2023-08-05] MEDS: IPRATROPIUM NEB FS 0.5 MG/2.5 ML AMPUL.NEB NEB SCH ×4 (02:12→19:30)
[2023-08-05] MEDS: IV D5/ 0.9% NACL 1,000 ML IV PRN (05:25)
[2023-08-05 06:28] LABS: BASOPHILS % (AUTO) 0.4 % (0.0-2.0); EOSINOPHILS # (AUTO) 0.1 K/uL (0.0-0.7); EOSINOPHILS % (AUTO) 1.1 % (0.0-6.0); HEMATOCRIT 32 % (33-45); HEMOGLOBIN 10.6 g/dL (11.5-14.8); LYMPHOCYTES # (AUTO) 1.1 K/uL (0.8-4.8); LYMPHOCYTES % (AUTO) 15.2 % (20.0-44.0); MEAN CORPUSCULAR HEMOGLOBIN 30 PG (26.0-33.0); MEAN CORPUSCULAR HGB CONC 33 g/dl (31.0-36.0); MEAN CORPUSCULAR VOLUME 91 fL (82-100); MONOCYTES # (AUTO) 0.7 K/uL (0.1-1.30); MONOCYTES % (AUTO) 9.4 % (2.0-12.0); NEUTROPHILS # (AUTO) 5.1 K/uL (1.8-8.9); NEUTROPHILS % (AUTO) 73.9 % (43.0-81.0); PLATELET COUNT (AUTO) 280 K/uL (150-450); RED BLOOD CELL COUNT(AUTO) 3.49 MIL/uL (4.0-5.2); RED CELL DISTRIBUTION WIDTH 14.3 % (11.5-15.0)
[2023-08-05 06:57] LABS: ALBUMIN 2.3 g/dL (3.4-5.0); BILIRUBIN,TOTAL 0.5 mg/dL (0.2-1.0); CALCIUM, SERUM 8.7 mg/dL (8.5-10.1); CREATININE 0.6 mg/dL (0.6-1.3); PHOSPHORUS 2.6 mg/dL (2.5-4.9); POTASSIUM 3.1 mmol/L (3.5-5.1); TOTAL PROTEIN, SERUM 6.4 g/dL (6.4-8.2)
[2023-08-05 07:44] VITALS: O2SAT 94
[2023-08-05 08:00] VITALS: BP 108/58; TEMP 97.8; O2SAT 96
[2023-08-05] MEDS: CEFEPIME 2 GM in IV D5W 100 ML IV SCH ×2 (08:28→20:09)
[2023-08-05] MEDS: PANTOPRAZOLE 40 MG TABLET.DR PO SCH (09:27)
[2023-08-05] MEDS: POTASSIUM CHLORIDE 20 MEQ TAB.PRT.SR PO SCH ×2 (10:13→11:55)
[2023-08-05] MEDS ORDERED: VANCOMYCIN 0.75 GM in IV D5W 250 ML IV SCH (14:00)
[2023-08-05 20:00] VITALS: BP 149/85; TEMP 98.5; O2SAT 97
[2023-08-05] MEDS: ENOXAPARIN SODIUM 40 MG/0.4 ML DISP.SYRIN SQ SCH (20:28)
[2023-08-06] MEDS: ALBUTEROL FS 2.5 MG/3 ML VIAL.NEB NEB SCH ×4 (01:30→19:30)
[2023-08-06] MEDS: IPRATROPIUM NEB FS 0.5 MG/2.5 ML AMPUL.NEB NEB SCH ×4 (01:30→19:30)
[2023-08-06] MEDS: IV D5/ 0.9% NACL 1,000 ML IV PRN (02:43)
[2023-08-06 06:24] VITALS: BP 125/82; TEMP 98.6; O2SAT 98
[2023-08-06 07:44] LABS: CALCIUM, SERUM 8.6 mg/dL (8.5-10.1); CREATININE 0.6 mg/dL (0.6-1.3); POTASSIUM 3.2 mmol/L (3.5-5.1)
[2023-08-06] MEDS: POTASSIUM CHLORIDE 20 MEQ TAB.PRT.SR PO SCH ×2 (11:18→11:24)
[2023-08-06] MEDS: PANTOPRAZOLE 40 MG TABLET.DR PO SCH (11:18)
[2023-08-06] MEDS: ENSURE ENLIVE CHOC 237 ML CAN PO SCH (11:18)
[2023-08-06] MEDS: LEVOFLOXACIN (250MG) 250 MG TABLET PO SCH (11:24)
[2023-08-06] MEDS: predniSONE 20 MG TABLET PO SCH (11:26)
[2023-08-06 20:00] VITALS: BP 144/88; TEMP 98.1; O2SAT 96
[2023-08-06] MEDS: ENOXAPARIN SODIUM 40 MG/0.4 ML DISP.SYRIN SQ SCH (22:03)
[2023-08-07] MEDS: ALBUTEROL FS 2.5 MG/3 ML VIAL.NEB NEB SCH ×4 (01:30→18:57)
[2023-08-07] MEDS: IPRATROPIUM NEB FS 0.5 MG/2.5 ML AMPUL.NEB NEB SCH ×4 (01:30→18:57)
[2023-08-07 04:00] VITALS: BP 125/85; TEMP 98.4; O2SAT 95
[2023-08-07] MEDS: IV D5/ 0.9% NACL 1,000 ML IV PRN ×2 (04:52→16:42)
[2023-08-07 07:35] LABS: CREATININE 0.7 mg/dL (0.6-1.3); POTASSIUM 3.4 mmol/L (3.5-5.1)
[2023-08-07 08:00] VITALS: BP 126/96; TEMP 98.6; O2SAT 97
[2023-08-07] MEDS: ENSURE ENLIVE CHOC 237 ML CAN PO SCH (09:00)
[2023-08-07] MEDS: LEVOFLOXACIN (250MG) 250 MG TABLET PO SCH (09:23)
[2023-08-07] MEDS: PANTOPRAZOLE 40 MG TABLET.DR PO SCH (09:24)
[2023-08-07] MEDS: predniSONE 20 MG TABLET PO SCH (09:24)
[2023-08-07] MEDS ORDERED: POTASSIUM CHLORIDE 20 MEQ TAB.PRT.SR PO SCH (10:00)
[2023-08-07 16:00] VITALS: BP 140/83; TEMP 97.5; O2SAT 98
[2023-08-07 20:00] VITALS: BP 139/82; TEMP 99.1
[2023-08-07] MEDS: ENOXAPARIN SODIUM 40 MG/0.4 ML DISP.SYRIN SQ SCH (21:02)
[2023-08-08] MEDS: IPRATROPIUM NEB FS 0.5 MG/2.5 ML AMPUL.NEB NEB SCH ×4 (01:30→19:30)
[2023-08-08] MEDS: ALBUTEROL FS 2.5 MG/3 ML VIAL.NEB NEB SCH ×4 (01:30→19:30)
[2023-08-08 04:00] VITALS: BP 134/83; TEMP 98.2
[2023-08-08] MEDS: IV D5/ 0.9% NACL 1,000 ML IV PRN ×2 (07:21→18:29)
[2023-08-08 07:50] LABS: CALCIUM, SERUM 8.7 mg/dL (8.5-10.1); CREATININE 0.6 mg/dL (0.6-1.3)
[2023-08-08 08:00] VITALS: BP 144/80; TEMP 98.6; O2SAT 100
[2023-08-08 08:15] LABS: ABG BASE EXCESS 0.2 mmol/L; ABG OXYGEN SATURATION 95.5 % (92.0-98.5); ABG PH 7.459 (7.350-7.450); ABG PO2 74.5 mmHg (75.0-100.0); ABG TOTAL HEMOGLOBIN 11.8 G/dL (12.0-16.0); COHb 0.3 % (0.5-1.5); MetHb 0.3 % (0.0-1.5); O2Hb 94.9 % (94.0-97.0); SITE, ABG Right Radial; VENT MODE, BG NASAL CANNULA
[2023-08-08] MEDS: PANTOPRAZOLE 40 MG TABLET.DR PO SCH (08:55)
[2023-08-08] MEDS: predniSONE 20 MG TABLET PO SCH (08:55)
[2023-08-08] MEDS: LEVOFLOXACIN (250MG) 250 MG TABLET PO SCH (08:55)
[2023-08-08] MEDS: ENSURE ENLIVE CHOC 237 ML CAN PO SCH (09:00)
[2023-08-08] MEDS: POTASSIUM CL. PREMIX PERIPHER. 50 ML IV SCH ×6 (09:11→14:49)
[2023-08-08 16:00] VITALS: BP 138/78; TEMP 98.4; O2SAT 98
[2023-08-08 20:00] VITALS: BP 151/90; TEMP 99.3; O2SAT 96
[2023-08-08] MEDS: ENOXAPARIN SODIUM 40 MG/0.4 ML DISP.SYRIN SQ SCH (20:53)
[2023-08-09] MEDS: ALBUTEROL FS 2.5 MG/3 ML VIAL.NEB NEB SCH ×4 (01:30→19:30)
[2023-08-09] MEDS: IPRATROPIUM NEB FS 0.5 MG/2.5 ML AMPUL.NEB NEB SCH ×4 (01:30→19:30)
[2023-08-09 04:00] VITALS: BP 150/80; TEMP 98
[2023-08-09 07:36] LABS: BASOPHILS % (AUTO) 0.3 % (0.0-2.0); EOSINOPHILS # (AUTO) 0.1 K/uL (0.0-0.7); EOSINOPHILS % (AUTO) 0.5 % (0.0-6.0); HEMATOCRIT 34 % (33-45); HEMOGLOBIN 11.3 g/dL (11.5-14.8); LYMPHOCYTES # (AUTO) 2.5 K/uL (0.8-4.8); LYMPHOCYTES % (AUTO) 26.1 % (20.0-44.0); MEAN CORPUSCULAR HEMOGLOBIN 30 PG (26.0-33.0); MEAN CORPUSCULAR HGB CONC 33 g/dl (31.0-36.0); MEAN CORPUSCULAR VOLUME 90 fL (82-100); MONOCYTES # (AUTO) 0.8 K/uL (0.1-1.30); MONOCYTES % (AUTO) 8.1 % (2.0-12.0); NEUTROPHILS # (AUTO) 6.2 K/uL (1.8-8.9); PLATELET COUNT (AUTO) 415 K/uL (150-450); RED BLOOD CELL COUNT(AUTO) 3.77 MIL/uL (4.0-5.2); RED CELL DISTRIBUTION WIDTH 14.1 % (11.5-15.0); WHITE BLOOD COUNT (AUTO) 9.5 K/uL (4.3-11.0)
[2023-08-09 08:00] VITALS: BP 129/78; TEMP 98.4; O2SAT 98
[2023-08-09 08:04] LABS: ALBUMIN 2.4 g/dL (3.4-5.0); BILIRUBIN,TOTAL 0.3 mg/dL (0.2-1.0); CALCIUM, SERUM 8.8 mg/dL (8.5-10.1); CREATININE 0.7 mg/dL (0.6-1.3); PHOSPHORUS 2.6 mg/dL (2.5-4.9); POTASSIUM 3.6 mmol/L (3.5-5.1); TOTAL PROTEIN, SERUM 6.3 g/dL (6.4-8.2)
[2023-08-09] MEDS: LEVOFLOXACIN (250MG) 250 MG TABLET PO SCH (08:35)
[2023-08-09] MEDS: predniSONE 20 MG TABLET PO SCH (08:35)
[2023-08-09] MEDS: PANTOPRAZOLE 40 MG TABLET.DR PO SCH (08:35)
[2023-08-09] MEDS: ENSURE ENLIVE CHOC 237 ML CAN PO SCH (08:36)
[2023-08-09 16:19] VITALS: BP 126/76; TEMP 98.1; O2SAT 98
[2023-08-09] MEDS: IV D5/ 0.9% NACL 1,000 ML IV PRN (18:10)
[2023-08-09 20:00] VITALS: BP 131/85; TEMP 97.9; O2SAT 96
[2023-08-09] MEDS: ENOXAPARIN SODIUM 40 MG/0.4 ML DISP.SYRIN SQ SCH (21:51)
[2023-08-10] MEDS: IPRATROPIUM NEB FS 0.5 MG/2.5 ML AMPUL.NEB NEB SCH ×4 (01:30→19:30)
[2023-08-10] MEDS: ALBUTEROL FS 2.5 MG/3 ML VIAL.NEB NEB SCH ×4 (01:30→19:30)
[2023-08-10 04:00] VITALS: BP 145/74; TEMP 97.7; O2SAT 96
[2023-08-10 07:03] LABS: BASOPHILS % (AUTO) 0.5 % (0.0-2.0); EOSINOPHILS # (AUTO) 0.1 K/uL (0.0-0.7); EOSINOPHILS % (AUTO) 1.3 % (0.0-6.0); HEMATOCRIT 35 % (33-45); HEMOGLOBIN 11.7 g/dL (11.5-14.8); LYMPHOCYTES # (AUTO) 2.3 K/uL (0.8-4.8); LYMPHOCYTES % (AUTO) 26.2 % (20.0-44.0); MEAN CORPUSCULAR HEMOGLOBIN 30 PG (26.0-33.0); MEAN CORPUSCULAR HGB CONC 33 g/dl (31.0-36.0); MEAN CORPUSCULAR VOLUME 90 fL (82-100); MONOCYTES # (AUTO) 0.5 K/uL (0.1-1.30); MONOCYTES % (AUTO) 5.9 % (2.0-12.0); NEUTROPHILS # (AUTO) 5.9 K/uL (1.8-8.9); NEUTROPHILS % (AUTO) 66.1 % (43.0-81.0); PLATELET COUNT (AUTO) 411 K/uL (150-450); RED BLOOD CELL COUNT(AUTO) 3.89 MIL/uL (4.0-5.2); WHITE BLOOD COUNT (AUTO) 8.9 K/uL (4.3-11.0)
[2023-08-10 07:47] LABS: ALBUMIN 2.5 g/dL (3.4-5.0); BILIRUBIN,TOTAL 0.3 mg/dL (0.2-1.0); CALCIUM, SERUM 8.5 mg/dL (8.5-10.1); CREATININE 0.6 mg/dL (0.6-1.3); MAGNESIUM 1.8 mg/dL (1.8-2.4); PHOSPHORUS 3.2 mg/dL (2.5-4.9); POTASSIUM 3.4 mmol/L (3.5-5.1); TOTAL PROTEIN, SERUM 6.4 g/dL (6.4-8.2)
[2023-08-10 08:00] VITALS: BP 136/78; TEMP 98.4; O2SAT 98
[2023-08-10] MEDS: ENSURE ENLIVE CHOC 237 ML CAN PO SCH (08:52)
[2023-08-10] MEDS: predniSONE 20 MG TABLET PO SCH (08:53)
[2023-08-10] MEDS: PANTOPRAZOLE 40 MG TABLET.DR PO SCH (08:53)
[2023-08-10] MEDS ORDERED: POTASSIUM CHLORIDE 20 MEQ POWDER PACKET PO SCH (10:00)
[2023-08-10 16:24] VITALS: BP 131/85; TEMP 97.9; O2SAT 96
[2023-08-10] MEDS: IV D5/ 0.9% NACL 1,000 ML IV PRN (18:32)
[2023-08-10 20:00] VITALS: BP 129/67; TEMP 98.1; O2SAT 95
[2023-08-10] MEDS: ENOXAPARIN SODIUM 40 MG/0.4 ML DISP.SYRIN SQ SCH (21:59)
[2023-08-11] MEDS: ALBUTEROL FS 2.5 MG/3 ML VIAL.NEB NEB SCH ×4 (01:30→19:30)
[2023-08-11] MEDS: IPRATROPIUM NEB FS 0.5 MG/2.5 ML AMPUL.NEB NEB SCH ×4 (01:30→19:30)
[2023-08-11 04:00] VITALS: BP 124/76; TEMP 98.1; O2SAT 94
[2023-08-11] MEDS: IV D5/ 0.9% NACL 1,000 ML IV PRN (06:33)
[2023-08-11 07:36] LABS: CALCIUM, SERUM 8.6 mg/dL (8.5-10.1); CREATININE 0.6 mg/dL (0.6-1.3); POTASSIUM 3.1 mmol/L (3.5-5.1)
[2023-08-11] MEDS: predniSONE 20 MG TABLET PO SCH (08:44)
[2023-08-11] MEDS: PANTOPRAZOLE 40 MG TABLET.DR PO SCH (08:44)
[2023-08-11] MEDS: ENSURE ENLIVE CHOC 237 ML CAN PO SCH (08:44)
[2023-08-11 09:01] VITALS: BP 126/76; TEMP 98.1; O2SAT 98
[2023-08-11] MEDS ORDERED: POTASSIUM CHLORIDE 20 MEQ POWDER PACKET GT ONE (10:00)
[2023-08-11 16:57] VITALS: BP 136/78; TEMP 98.4; O2SAT 98
[2023-08-11 20:00] VITALS: BP 139/67; TEMP 98.4; O2SAT 95
[2023-08-11] MEDS: ENOXAPARIN SODIUM 40 MG/0.4 ML DISP.SYRIN SQ SCH (22:00)
[2023-08-12] MEDS: ALBUTEROL FS 2.5 MG/3 ML VIAL.NEB NEB SCH ×4 (01:26→19:30)
[2023-08-12] MEDS: IPRATROPIUM NEB FS 0.5 MG/2.5 ML AMPUL.NEB NEB SCH ×4 (01:26→19:30)
[2023-08-12] MEDS: IV D5/ 0.9% NACL 1,000 ML IV PRN ×2 (03:11→17:32)
[2023-08-12 04:00] VITALS: BP 142/88; TEMP 97.3; O2SAT 95
[2023-08-12] MEDS: ENSURE ENLIVE CHOC 237 ML CAN PO SCH (09:06)
[2023-08-12] MEDS: predniSONE 20 MG TABLET PO SCH (09:07)
[2023-08-12] MEDS: PANTOPRAZOLE 40 MG TABLET.DR PO SCH (09:07)
[2023-08-12 09:45] VITALS: BP 131/72; TEMP 98.2; O2SAT 96
[2023-08-12 16:00] VITALS: BP 147/89; TEMP 98.8; O2SAT 94
[2023-08-12 20:00] VITALS: BP 114/72; TEMP 98.4
[2023-08-12] MEDS: ENOXAPARIN SODIUM 40 MG/0.4 ML DISP.SYRIN SQ SCH (22:07)
[2023-08-13] MEDS: ALBUTEROL FS 2.5 MG/3 ML VIAL.NEB NEB SCH ×2 (00:54→19:30)
[2023-08-13] MEDS: IPRATROPIUM NEB FS 0.5 MG/2.5 ML AMPUL.NEB NEB SCH ×2 (00:54→19:30)
[2023-08-13 04:00] VITALS: BP 122/83; TEMP 97.7; O2SAT 97
[2023-08-13 08:00] VITALS: BP 140/84; TEMP 98.2; O2SAT 97
[2023-08-13] MEDS: predniSONE 20 MG TABLET PO SCH (08:14)
[2023-08-13] MEDS: PANTOPRAZOLE 40 MG TABLET.DR PO SCH (08:14)
[2023-08-13] MEDS: ENSURE ENLIVE CHOC 237 ML CAN PO SCH (08:15)
[2023-08-13] MEDS: IV D5/ 0.9% NACL 1,000 ML IV PRN (09:56)
[2023-08-13 16:00] VITALS: BP 127/70; TEMP 98.8; O2SAT 97
[2023-08-13 20:50] VITALS: BP 158/89; TEMP 98.1; O2SAT 94
[2023-08-13] MEDS: ENOXAPARIN SODIUM 40 MG/0.4 ML DISP.SYRIN SQ SCH (21:14)
[2023-08-14] MEDS: IPRATROPIUM NEB FS 0.5 MG/2.5 ML AMPUL.NEB NEB SCH ×4 (01:30→19:30)
[2023-08-14] MEDS: ALBUTEROL FS 2.5 MG/3 ML VIAL.NEB NEB SCH ×4 (01:30→19:30)
[2023-08-14] MEDS: IV D5/ 0.9% NACL 1,000 ML IV PRN ×2 (02:18→18:01)
[2023-08-14 04:33] VITALS: BP 137/79; TEMP 98; O2SAT 95
[2023-08-14 08:00] VITALS: BP 138/76; TEMP 98.5; O2SAT 96
[2023-08-14] MEDS: predniSONE 20 MG TABLET PO SCH (10:38)
[2023-08-14] MEDS: ENSURE ENLIVE CHOC 237 ML CAN PO SCH (10:38)
[2023-08-14] MEDS: PANTOPRAZOLE 40 MG TABLET.DR PO SCH (10:39)
[2023-08-14 12:00] VITALS: BP 118/64; TEMP 98; O2SAT 96
[2023-08-14 16:00] VITALS: BP 117/70; TEMP 98; O2SAT 96
[2023-08-14 20:00] VITALS: BP 106/68; TEMP 98; O2SAT 100
[2023-08-14] MEDS: ENOXAPARIN SODIUM 40 MG/0.4 ML DISP.SYRIN SQ SCH (21:00)
[2023-08-15] MEDS: IPRATROPIUM NEB FS 0.5 MG/2.5 ML AMPUL.NEB NEB SCH (01:30)
[2023-08-15] MEDS: ALBUTEROL FS 2.5 MG/3 ML VIAL.NEB NEB SCH (01:30)
[2023-08-15 04:00] VITALS: BP 110/70; TEMP 98; O2SAT 100
[2023-08-15 08:00] VITALS: BP 125/70; TEMP 98.3; O2SAT 100
[2023-08-15] MEDS: PANTOPRAZOLE 40 MG TABLET.DR PO SCH (08:06)
[2023-08-15] MEDS: predniSONE 20 MG TABLET PO SCH (08:10)
[2023-08-15] MEDS: ENSURE ENLIVE CHOC 237 ML CAN PO SCH (08:10)
== END 2023-08-15 11:04 | DRG 871 ==
LOC: ER 18:40 → TELE 22:32 → MED 08-02 08:19 → TELE1 08-05 15:34 → MEDSG1 08-06 00:39
PROVIDERS: ADMIT Nurse Practitioner Acute Care
DX: A41.89 Other specified sepsis (principal); G92.8 Other toxic encephalopathy; J96.01 Acute respiratory failure with hypoxia; U07.1 COVID-19; J15.9 Unspecified bacterial pneumonia; E44.0 Moderate protein-calorie malnutrition; N39.0 Urinary tract infection, site not specified; J44.0 Chronic obstructive pulmonary disease with (acute) lower respiratory infection; E87.20 Acidosis, unspecified; E78.5 Hyperlipidemia, unspecified; I10 Essential (primary) hypertension; Z87.19 Personal history of other diseases of the digestive system; G62.9 Polyneuropathy, unspecified; F20.9 Schizophrenia, unspecified; F32.A Depression, unspecified; F03.90 Unspecified dementia, unspecified severity, without behavioral disturbance, psychotic disturbance, mood disturbance, and anxiety; F41.9 Anxiety disorder, unspecified; K21.9 Gastro-esophageal reflux disease without esophagitis; Z96.652 Presence of left artificial knee joint; Z88.8 Allergy status to other drugs, medicaments and biological substances; Z79.899 Other long term (current) drug therapy; Z79.890 Hormone replacement therapy; Y95 Nosocomial condition; F09 Unspecified mental disorder due to known physiological condition; E03.9 Hypothyroidism, unspecified; E87.6 Hypokalemia; I25.10 Atherosclerotic heart disease of native coronary artery without angina pectoris; B96.20 Unspecified Escherichia coli [E. coli] as the cause of diseases classified elsewhere
CPT/HCPCS: 31720; 36415; 36600; 71045-TC; 80048-TC; 80053-TC; 80061-TC; 80076-TC; 80202-TC; 81001; 82962-TC; 83605-TC; 83735-TC; 84100-TC; 84436-TC; 84443-TC; 84484-TC; 85025-TC; 85730-TC; 86140-TC; 87040-TC; 87081-TC; 87086-TC; 92526; 92611-TC; 93971-TC; 94799-TC; 97112-TC; 97530-TC; A4223; A9563; C9113; G0378; J0360; J0692; J1650; J3370; J3480; J3490; J7030; J7042; J7050; J7060

== ENCOUNTER 2024-07-18 14:37 | Inpatient (IN) | payer MEDICARE, OTHER ==
[~2024-07-18] VITALS: Ht 154.9 cm; Wt 73.0 kg
[~2024-07-18 14:37] MED LIST changes: -AMLO-212 PO; +AMLO5TAB4 PO; -DULO30CA52 PO; -HYDR-4076 PO; +LEVO150T8 PO; -LEVO75TA PO; +MAG30ORA PO; +OMEP20CA15 PO; -PANT40TA2 PO; -QUET25TA PO
[2024-07-18] MEDS: IV NS 0.9% 1,000 ML BAG IV ONE (15:00)
[2024-07-18 15:14] LABS: BASOPHILS # (AUTO) 0.1 K/uL (0.0-0.2); BASOPHILS % (AUTO) 0.8 % (0.0-2.0); EOSINOPHILS % (AUTO) 0.6 % (0.0-6.0); HEMATOCRIT 36 % (33-45); HEMOGLOBIN 12.1 g/dL (11.5-14.8); LYMPHOCYTES # (AUTO) 2.2 K/uL (0.8-4.8); LYMPHOCYTES % (AUTO) 25.7 % (20.0-44.0); MEAN CORPUSCULAR HEMOGLOBIN 30 PG (26.0-33.0); MEAN CORPUSCULAR HGB CONC 34 g/dl (31.0-36.0); MEAN CORPUSCULAR VOLUME 88 fL (82-100); MONOCYTES # (AUTO) 0.6 K/uL (0.1-1.30); MONOCYTES % (AUTO) 6.6 % (2.0-12.0); NEUTROPHILS # (AUTO) 5.6 K/uL (1.8-8.9); NEUTROPHILS % (AUTO) 66.3 % (43.0-81.0); PLATELET COUNT (AUTO) 394 K/uL (150-450); RED BLOOD CELL COUNT(AUTO) 4.07 MIL/uL (4.0-5.2); RED CELL DISTRIBUTION WIDTH 14.1 % (11.5-15.0); WHITE BLOOD COUNT (AUTO) 8.5 K/uL (4.3-11.0)
[2024-07-18] MEDS ORDERED: NA P133E RC (15:17)
[2024-07-18] MEDS ORDERED: LEVO175T7 PO (15:17)
[2024-07-18 15:32] LABS: LACTIC ACID 1.1 mmol/L (0.4-2.0)
[2024-07-18 15:36] LABS: CALCIUM, SERUM 8.9 mg/dL (8.5-10.1); CARBON DIOXIDE 28 mmol/L (21-32); CHLORIDE 105 mmol/L (98-107); CREATININE 0.7 mg/dL (0.6-1.3); GLUCOSE 91 mg/dL (74-106); POTASSIUM 3.1 mmol/L (3.5-5.1); SODIUM SERUM 143 mmol/L (136-145); UREA NITROGEN, BLOOD 9 mg/dL (7-18)
[2024-07-18 15:40] LABS: INR 1.04 (0.91-1.10)
[2024-07-18 15:43] LABS: ALANINE AMINOTRANSFERASE 11 U/L (12-78); ALBUMIN 2.7 g/dL (3.4-5.0); ALKALINE PHOSPHATASE 88 U/L (46-116); ASPARTATE AMINOTRANSFERASE 17 U/L (15-37); BILIRUBIN,DIRECT 0.2 mg/dL (0.0-0.2); BILIRUBIN,TOTAL 0.5 mg/dL (0.2-1.0)
[2024-07-18 16:04] LABS: BAND % (MANUAL) 1 % (0.0-5.0); LYMPHOCYTES % (MANUAL) 26 % (16-48); MONOCYTES % (MANUAL) 7 % (0-11.0); NEUTROPHILS % (MANUAL) 66 (42-76); PLATELET ESTIMATE ADEQUATE
[2024-07-18 16:05] LABS: ANISOCYTOSIS 1+; OVALOCYTES 1+
[2024-07-18 16:28] LABS: APPEARANCE,URINE Cloudy (CLEAR); BILIRUBIN,URINE SMALL (NEGATIVE); BLOOD, URINE Negative Ery/uL (NEGATIVE); COLOR,URINE YELLOW (YELLOW); KETONES,URINE 15 mg/dL (NEGATIVE); LEUKOCYTE ESTERASE ,URINE Negative (NEGATIVE); NITRITE, URINE Positive (NEGATIVE); PROTEIN,URINE 30 mg/dl (NEGATIVE); UGLUCOSE Negative (NEGATIVE)
[2024-07-18] MEDS ORDERED: IV PREMIX 0.45% NS + KCL 1,000 ML IV ONE (16:30)
[2024-07-18] MEDS ORDERED: MAG HYDROX/AL HYDROX/SIMETH 30 ML UDC PO PRN (16:30)
[2024-07-18] MEDS ORDERED: ONDANSETRON HCL/PF 4 MG/2 ML VIAL IVP PRN (16:30)
[2024-07-18] MEDS ORDERED: Z GUARD REMEDY 4 OZ OINT TP PRN (16:30)
[2024-07-18] MEDS ORDERED: ACETAMINOPHEN 325 MG TABLET PO PRN (16:30)
[2024-07-18] MEDS ORDERED: MAGNESIUM HYDROXIDE 30 ML UDC PO PRN ×2 (16:30→19:00)
[2024-07-18 17:13] LABS: ADD URINE CULTURE YES; BACTERIA,URINE 4+ /HPF (None Seen); MUCUS,URINE Few /LPF (None Seen); RBC,URINE 0-2 /HPF (0-2)
[2024-07-18] MEDS ORDERED: NA PHOS,M-B/NA PHOS,DI-BA 1 EA ENEMA RC PRN (19:00)
[2024-07-18] MEDS: ATORVASTATIN 10 MG TABLET PO SCH (22:00)
[2024-07-18] MEDS: GABAPENTIN 100 MG CAPSULE PO SCH (22:00)
[2024-07-18] MEDS: DONEPEZIL 5 MG TABLET PO SCH (22:00)
[2024-07-18 23:46] VITALS: BP 145/99; TEMP 97.3; O2SAT 95
[2024-07-19 07:15] LABS: BASOPHILS % (AUTO) 0.5 % (0.0-2.0); EOSINOPHILS % (AUTO) 0.6 % (0.0-6.0); HEMATOCRIT 38 % (33-45); HEMOGLOBIN 12.5 g/dL (11.5-14.8); LYMPHOCYTES # (AUTO) 1.5 K/uL (0.8-4.8); LYMPHOCYTES % (AUTO) 18.2 % (20.0-44.0); MEAN CORPUSCULAR HEMOGLOBIN 30 PG (26.0-33.0); MEAN CORPUSCULAR HGB CONC 33 g/dl (31.0-36.0); MEAN CORPUSCULAR VOLUME 92 fL (82-100); MONOCYTES # (AUTO) 0.5 K/uL (0.1-1.30); MONOCYTES % (AUTO) 6.7 % (2.0-12.0); NEUTROPHILS # (AUTO) 5.9 K/uL (1.8-8.9); PLATELET COUNT (AUTO) 332 K/uL (150-450); RED BLOOD CELL COUNT(AUTO) 4.15 MIL/uL (4.0-5.2); RED CELL DISTRIBUTION WIDTH 14.5 % (11.5-15.0)
[2024-07-19 07:17] LABS: CALCIUM, SERUM 8.5 mg/dL (8.5-10.1); CARBON DIOXIDE 21 mmol/L (21-32); CHLORIDE 105 mmol/L (98-107); CREATININE 0.5 mg/dL (0.6-1.3); GLUCOSE 99 mg/dL (74-106); MAGNESIUM 1.8 mg/dL (1.8-2.4); PHOSPHORUS 2.6 mg/dL (2.5-4.9); POTASSIUM 3.2 mmol/L (3.5-5.1); SODIUM SERUM 138 mmol/L (136-145); UREA NITROGEN, BLOOD 7 mg/dL (7-18)
[2024-07-19] MEDS: PANTOPRAZOLE 40 MG TABLET.DR PO SCH (07:30)
[2024-07-19] MEDS: POTASSIUM CHLORIDE 20 MEQ TAB.PRT.SR PO ONE (07:30)
[2024-07-19] MEDS: LEVOTHYROXINE SODIUM 175 MCG TABLET PO SCH (07:30)
[2024-07-19 08:00] VITALS: BP 110/96; TEMP 99; O2SAT 94
[2024-07-19] MEDS: CEFTRIAXONE 1 G in IV D5W 50 ML IV SCH (08:48)
[2024-07-19] MEDS: MEMANTINE HCL 5 MG TABLET PO SCH (09:00)
[2024-07-19] MEDS: POLYETHYLENE GLYCOL 3350 17 GM POWD.PACK PO SCH (09:00)
[2024-07-19] MEDS: AMLODIPINE BESYLATE 5 MG TABLET PO SCH (09:00)
[2024-07-19] MEDS: SENNOSIDES 8.6 MG TABLET PO SCH (09:00)
[2024-07-19] MEDS: THERAHONEY GEL 1.5 OZ TUBE TP SCH (09:25)
[2024-07-19] MEDS: POTASSIUM CL. PREMIX PERIPHER. 50 ML IV SCH ×2 (11:22→13:59)
[2024-07-19 16:00] VITALS: BP 153/83; TEMP 97.9; TEMP 99.1; O2SAT 94
[2024-07-19] MEDS: IV D5/0.45 NACL 1,000 ML IV PRN (17:33)
[2024-07-19 20:00] VITALS: BP 151/88; TEMP 97.9; O2SAT 97
[2024-07-20 07:15] LABS: BASOPHILS % (AUTO) 0.2 % (0.0-2.0); EOSINOPHILS # (AUTO) 0.1 K/uL (0.0-0.7); EOSINOPHILS % (AUTO) 0.5 % (0.0-6.0); HEMATOCRIT 35 % (33-45); LYMPHOCYTES # (AUTO) 1.5 K/uL (0.8-4.8); LYMPHOCYTES % (AUTO) 13.1 % (20.0-44.0); MEAN CORPUSCULAR HEMOGLOBIN 30 PG (26.0-33.0); MEAN CORPUSCULAR HGB CONC 34 g/dl (31.0-36.0); MEAN CORPUSCULAR VOLUME 89 fL (82-100); MONOCYTES # (AUTO) 0.6 K/uL (0.1-1.30); NEUTROPHILS # (AUTO) 9.3 K/uL (1.8-8.9); NEUTROPHILS % (AUTO) 81.2 % (43.0-81.0); PLATELET COUNT (AUTO) 375 K/uL (150-450); RED BLOOD CELL COUNT(AUTO) 3.97 MIL/uL (4.0-5.2); RED CELL DISTRIBUTION WIDTH 13.8 % (11.5-15.0); WHITE BLOOD COUNT (AUTO) 11.5 K/uL (4.3-11.0)
[2024-07-20 07:42] LABS: CALCIUM, SERUM 8.6 mg/dL (8.5-10.1); CARBON DIOXIDE 27 mmol/L (21-32); CHLORIDE 104 mmol/L (98-107); CREATININE 0.5 mg/dL (0.6-1.3); GLUCOSE 141 mg/dL (74-106); SODIUM SERUM 140 mmol/L (136-145); UREA NITROGEN, BLOOD 4 mg/dL (7-18)
[2024-07-20 08:00] VITALS: BP 142/82; TEMP 98.2; O2SAT 95
[2024-07-20] MEDS: POTASSIUM CL. PREMIX PERIPHER. 50 ML IV SCH (10:21)
[2024-07-20 16:25] VITALS: BP 162/89; TEMP 97.6; O2SAT 96
[2024-07-20 20:00] VITALS: BP 152/96; TEMP 98.2; O2SAT 94
[2024-07-21] MEDS: VANCOMYCIN 1 GM /D5W 250 ML PB IV ONE (01:01)
[2024-07-21] MEDS: VANCOMYCIN 1 GM in IV D5W 250ml IV ONE (01:04)
[2024-07-21 07:30] VITALS: BP 150/87; TEMP 98.4; O2SAT 96
[2024-07-21] MEDS ORDERED: NITR100C PO (07:37)
[2024-07-21 08:06] LABS: BASOPHILS % (AUTO) 0.3 % (0.0-2.0); EOSINOPHILS # (AUTO) 0.1 K/uL (0.0-0.7); EOSINOPHILS % (AUTO) 1.1 % (0.0-6.0); HEMATOCRIT 37 % (33-45); HEMOGLOBIN 12.1 g/dL (11.5-14.8); LYMPHOCYTES # (AUTO) 1.6 K/uL (0.8-4.8); MEAN CORPUSCULAR HEMOGLOBIN 29 PG (26.0-33.0); MEAN CORPUSCULAR HGB CONC 33 g/dl (31.0-36.0); MEAN CORPUSCULAR VOLUME 89 fL (82-100); MONOCYTES # (AUTO) 0.5 K/uL (0.1-1.30); MONOCYTES % (AUTO) 6.2 % (2.0-12.0); NEUTROPHILS # (AUTO) 6.3 K/uL (1.8-8.9); NEUTROPHILS % (AUTO) 73.4 % (43.0-81.0); PLATELET COUNT (AUTO) 367 K/uL (150-450); RED BLOOD CELL COUNT(AUTO) 4.11 MIL/uL (4.0-5.2); RED CELL DISTRIBUTION WIDTH 14.2 % (11.5-15.0); WHITE BLOOD COUNT (AUTO) 8.6 K/uL (4.3-11.0)
[2024-07-21 08:31] LABS: CALCIUM, SERUM 8.4 mg/dL (8.5-10.1); CARBON DIOXIDE 25 mmol/L (21-32); CHLORIDE 106 mmol/L (98-107); CREATININE 0.5 mg/dL (0.6-1.3); GLUCOSE 123 mg/dL (74-106); POTASSIUM 3.5 mmol/L (3.5-5.1); SODIUM SERUM 139 mmol/L (136-145); UREA NITROGEN, BLOOD 3 mg/dL (7-18)
[2024-07-21] MEDS: VANCOMYCIN 750 MG in IV D5W 250 ML IV ONE (09:39)
[2024-07-21] MEDS ORDERED: VANCOMYCIN 1 GM in IV D5W 250ml IV SCH (21:00)
== END 2024-07-21 14:15 | DRG 640 ==
LOC: ER 14:43 → MED 16:36
PROVIDERS: ATTEND Internal Medicine
DX: R62.7 Adult failure to thrive (principal); G93.41 Metabolic encephalopathy; L89.153 Pressure ulcer of sacral region, stage 3; N39.0 Urinary tract infection, site not specified; F01.54 Vascular dementia, unspecified severity, with anxiety; F01.53 Vascular dementia, unspecified severity, with mood disturbance; K21.9 Gastro-esophageal reflux disease without esophagitis; E03.9 Hypothyroidism, unspecified; E87.6 Hypokalemia; E78.5 Hyperlipidemia, unspecified; I10 Essential (primary) hypertension; Z87.19 Personal history of other diseases of the digestive system; I25.10 Atherosclerotic heart disease of native coronary artery without angina pectoris; G62.9 Polyneuropathy, unspecified; R53.1 Weakness; F20.9 Schizophrenia, unspecified; F32.A Depression, unspecified; Z96.652 Presence of left artificial knee joint; Z79.890 Hormone replacement therapy; Z79.899 Other long term (current) drug therapy; B96.89 Other specified bacterial agents as the cause of diseases classified elsewhere; J44.9 Chronic obstructive pulmonary disease, unspecified; Z91.199 Patient's noncompliance with other medical treatment and regimen due to unspecified reason; Z88.8 Allergy status to other drugs, medicaments and biological substances; K29.70 Gastritis, unspecified, without bleeding
CPT/HCPCS: 36415; 71045-TC; 80048-TC; 80076-TC; 81001; 83605-TC; 83735-TC; 84100-TC; 84439-TC; 84443-TC; 84484-TC; 85025-TC; 85730-TC; 87040-TC; 87081-TC; 87086-TC; 92526; 92611-TC; 97110-TC; 97530-TC; A4223; G0378; J0696; J3370; J3371; J3480; J3490; J7030; J7040; J7050; J7060